=== PATIENT | female | born 1955 | race Caucasian/White ===

== ENCOUNTER → 2017-03-27 | Outpatient (CLI) | payer BC ==
[2017-03-27 09:23] LABS: Basophils % (A) 1 %; Eosinophils # (A) 0.2 k/uL (0-0.7); Eosinophils % (A) 5 %; HCT 44.6 % (34.0-46.0); HGB 14.4 gm/dL (11.4-16.0); Lymphocytes # (A) 1.1 k/uL (1.0-4.8); Lymphocytes % (A) 23 %; MCH 30.3 pg (25.0-35.0); MCHC 32.2 g/dL (31.0-37.0); Mean Platelet Volume 6.7; Monocytes # (A) 0.2 k/uL (0-1.0); Monocytes % (A) 5 %; Neutrophils # (A) 2.9 k/uL (1.3-7.7); Neutrophils % (A) 64 %; Platelet Count 237 k/uL (150-450); RBC 4.75 m/uL (3.80-5.40); RDW 15.2 % (11.5-15.5); WBC 4.6 k/uL (3.8-10.6)
[2017-03-27 10:05] LABS: ALT 34 U/L (9-52); AST 28 U/L (14-36); Albumin 3.9 g/dL (3.5-5.0); Alkaline Phosphatase 70 U/L (38-126); Anion Gap 6 mmol/L; Blood Urea Nitrogen 11 mg/dL (7-17); Calcium 9.6 mg/dL (8.4-10.2); Carbon Dioxide 29 mmol/L (22-30); Chloride 109 mmol/L (98-107); Cholesterol 229 mg/dL (<200); Glucose 87 mg/dL (74-99); HDL Cholesterol 58 mg/dL (40-60); LDL Cholesterol,Calculated 152 mg/dL (0-99); Potassium 4.5 mmol/L (3.5-5.1); Sodium 144 mmol/L (137-145); Total Bilirubin 0.3 mg/dL (0.2-1.3); Total Protein 6.3 g/dL (6.3-8.2); Triglycerides 95 mg/dL (<150)
[2017-03-27 10:19] LABS: T4, Free (Free Thyroxine) 0.76 ng/dL (0.78-2.19)
[2017-03-27 20:25] LABS: Hemoglobin A1C 4.9 % (4.0-6.0)
== END | disposition home or self-care (01) ==
LOC: LABWHC1 09:05
PROVIDERS: ATTEND Internal Medicine Critical Care Medicine
DX: Z00.00 Encounter for general adult medical examination without abnormal findings (principal); J45.909 Unspecified asthma, uncomplicated; Z79.899 Other long term (current) drug therapy
CPT/HCPCS: 36415; 80053; 80061; 82306; 83036; 84439; 84443; 85025

== ENCOUNTER → 2020-06-26 | Outpatient (CLI) | payer BC, MEDICARE ==
[2020-06-26 10:26] LABS: ALT 13 U/L (4-34); AST 25 U/L (14-36); African American GFR (CKD) >90 (>60 ml/min/1.73 sqM); Albumin 4.2 g/dL (3.5-5.0); Alkaline Phosphatase 52 U/L (38-126); Anion Gap 6 mmol/L; Blood Urea Nitrogen 9 mg/dL (7-17); Calcium 9.7 mg/dL (8.4-10.2); Carbon Dioxide 28 mmol/L (22-30); Chloride 108 mmol/L (98-107); Glucose 71 mg/dL (74-99); Non-African American GFR(CKD) >90 (>60 ml/min/1.73 sqM); Potassium 4.2 mmol/L (3.5-5.1); Sodium 142 mmol/L (137-145); Total Bilirubin 0.5 mg/dL (0.2-1.3); Total Protein 6.2 g/dL (6.3-8.2)
[2020-06-26 10:43] LABS: T4, Free (Free Thyroxine) 0.85 ng/dL (0.78-2.19)
[2020-06-26 10:48] LABS: Basophils % (A) 1 %; Eosinophils % (A) 1 %; HCT 41.3 % (34.0-46.0); HGB 13.9 gm/dL (11.4-16.0); Lymphocytes # (A) 0.6 k/uL (1.0-4.8); Lymphocytes % (A) 12 %; MCHC 33.6 g/dL (31.0-37.0); MCV 95.3 fL (80.0-100.0); Mean Platelet Volume 7.7; Monocytes # (A) 0.2 k/uL (0-1.0); Monocytes % (A) 4 %; Neutrophils # (A) 3.9 k/uL (1.3-7.7); Neutrophils % (A) 82 %; Platelet Count 208 k/uL (150-450); RBC 4.33 m/uL (3.80-5.40); RDW 14.1 % (11.5-15.5); WBC 4.8 k/uL (3.8-10.6)
--- NOTE | 2020-06-26 12:22 | MM ---
Reason for exam: clinical finding. History: Patient is postmenopausal and is nulliparous. Family history of breast cancer in sister at age 50. Indicated problem(s): lump or thickening in the right breast. Physical Findings: Nurse Summary: 2 x 3cm nodule in the right breast at 7 o'clock (nurse ts). MG 3D Diag Mammo W/Cad ALONSO Bilateral CC and MLO view(s) were taken. The breast tissue is heterogeneously dense. This may lower the sensitivity of mammography. Multiple bilateral punctate calcifications. 2.1cm mass at the site of palpable abnormality right breast. Improved distortion upper outer left breast 6.6cm from nipple. These results were verbally communicated with the patient and result sheet given to the patient on 06/26/20. ASSESSMENT: Incomplete: need additional imaging evaluation, BI-RAD 0 RECOMMENDATION: Ultrasound of both breasts. Manage patient on a clinical basis.
--- NOTE | 2020-06-26 12:25 | USB ---
Reason for exam: additional evaluation requested from abnormal screening. History: Patient is postmenopausal and is nulliparous. Family history of breast cancer in sister at age 50. US Breast Limited BILAT Right limited breast ultrasound including focal area of concern, retroareolar and axilla demonstrates a 2.1 x 2.5 x 1.9cm solid, vascular lesion with calcifications at 9 o'clock, a 1.5 x 1.5 x 0.8cm solid lesion with calcifications at 11 o'clock and a 3.1 x 3.0 x 2.1cm irregular lymph node at the axilla. Biopsy recommended. Left limited breast ultrasound including focal area of concern, retroareolar and axilla demonstrates a 1.5 x 1.4 x 0.5cm solid lesion with calcifications at 1 o'clock. Biopsy recommended. These results were verbally communicated with the patient and result sheet given to the patient on 06/26/20. ASSESSMENT: Highly suggestive of malignancy, BI-RAD 5 RECOMMENDATION: Ultrasound core biopsy of both breasts. Called Dr. Reid's office with mammographic findings and has scheduled an appointment for the patient for 06/28/20 at 8:[address] Sanchez. Biopsy scheduled for 07/05/20 at 10:30. PRELIMINARY REPORT CALLED AND FAXED TO DR. SANCHEZ ON 06/26/20.
[2020-06-26 13:40] LABS: Cholesterol 209 mg/dL (<200); HDL Cholesterol 60 mg/dL (40-60); LDL Cholesterol,Calculated 137 mg/dL (0-99); Triglycerides 58 mg/dL (<150)
[2020-06-26 19:00] LABS: Hemoglobin A1C 4.7 % (4.0-6.0)
[2020-06-27 10:23] LABS: Folate, Serum >24.0 ng/mL
== END | disposition home or self-care (01) ==
LOC: RADMAMWWP 07:01
PROVIDERS: ATTEND Internal Medicine Critical Care Medicine
DX: R92.1 Mammographic calcification found on diagnostic imaging of breast (principal); Z78.0 Asymptomatic menopausal state; Z80.3 Family history of malignant neoplasm of breast
CPT/HCPCS: 36415; 77062; 77066; 80053; 80061; 82306; 82607; 82746; 83036; 84439; 84443; 85025

== ENCOUNTER → 2020-06-28 | Outpatient (CLI) | payer BC, MEDICARE ==
[2020-06-28 08:26] VITALS: BP 119/75; PULSE 57; RESP 14; TEMP 98.6
--- NOTE | 2020-06-28 09:02 | P.GSHP ---
History of Present Illness H&P Date: 06/28/20 Chief Complaint: Mass right breast/abnormal mammogram and ultrasound bilateral Silva is a 65-year-old white female seen in consultation for Dr. Reid regarding a mass in her right breast and bilateral mammographic/ultrasound abnormalities. The patient states approximately March she noted a mass in her right breast. She states that the skin was discolored as though she had a bruise although she did not recall any trauma. Since that time the area of fullness has decreased in size. She does not complain of any pain in her breast. She had bilateral mammogram performed on 5520. This revealed multiple bilateral punctate calcifications, a 2.1 cm mass at the site of palpable palpable abnormality in the right breast, and distortion upper outer quadrant left breast 6 cm from the nipple. Recommendation was for bilateral breast ultrasound. Bilateral breast ultrasound was performed on the same date and this revealed: Right breast: 2.1 x 2.5 cm solid lesion with calcifications at 9:00, 1.5 x 1.5 cm solid lesion with calcifications at 11:00, and 3.1 x 2.1 cm irregular lymph node at the axilla, biopsy recommended. Left breast: 1.5 cm solid lesion with calcifications at 1:00 biopsy recommended She had not had mammograms performed for many years prior to this. She has not noted any nipple discharge or skin changes. She has not had any recent infection of the breast. She's never had any surgery of the breast. She states she has had a recent 75 pound weight loss which was intentional. Caffeine: 2 cups green tea per day Nicotine: Negative, never smoker Chocolate: Occasional Family history: sister: of breast cancer at 51 maternal cousin: brain cancer maternal cousin: leukemia Hormonal history: Menarche: 12 G0 menopause: 39, natural BCP: none hormones: none Surgical history: left ankle and leg trauma Medical History: asthma Eosinophilic esophagitis, diet controlled Social history: Nicotine: Negative Alcohol: Negative Drugs: Negative - Constitutional Constitutional: Denies chills, Denies fever - EENT Comment: beginnings of cataracts, wears glasses Eyes: denies blurred vision, denies pain Ears: deny: decreased hearing, tinnitus Ears, nose, mouth and throat: Denies headache, Denies sore throat - Breasts Breasts: bilateral: as per HPI - Cardiovascular Cardiovascular: Denies chest pain, Denies shortness of breath - Respiratory Comment: asthma/since a child, very premature weighed 3 pounds - Gastrointestinal Gastrointestinal: Denies abdominal pain, Denies diarrhea, Denies nausea, Denies vomiting - Genitourinary (Female) Genitourinary: Denies dysuria, Denies hematuria - Menstruation Menstruation: Reports postmenopausal - Musculoskeletal Musculoskeletal: Denies myalgias - Integumentary Integumentary: Denies pruritus, Denies rash - Neurological Neurological: Denies numbness, Denies weakness - Psychiatric Psychiatric: Denies anxiety, Denies depression - Endocrine Endocrine: Denies fatigue, Denies weight change - Hematologic/Lymphatic Comment: none - Allergic/Immunologic Allergic/Immunologic: Reports seasonal allergies Past Medical History Past Medical History: Asthma Additional Past Medical History / Comment(s): eosinophilic esophagitis; right pneumothorax 1993; History of Any Multi-Drug Resistant Organisms: None Reported Additional Past Surgical History / Comment(s): left ankle; Past Anesthesia/Blood Transfusion Reactions: No Reported Reaction Past Psychological History: No Psychological Hx Reported Smoking Status: Never smoker Past Alcohol Use History: None Reported Past Drug Use History: None Reported Medications and Allergies Home Medications Medication Instructions Recorded Confirmed Type Albuterol Sulfate [Albuterol 2 puff PO Q6H 06/28/20 06/28/20 History Sulfate Hfa] Budesonide/Formoterol Fumarate 2 puff PO BID 06/28/20 06/28/20 History [Budesonide-Formoterol 160-4.5] Cholecalciferol [Vitamin D3 (10 10 mcg PO QAM 06/28/20 06/28/20 History Mcg = 400 Iu)] Montelukast [Singulair] 10 mg PO QAM 06/28/20 06/28/20 History Multivitamin with Iron 1 each PO QAM 06/28/20 06/28/20 History [Multivitamins with Iron] [place]-3 Fatty Acids [[place]-3] 1,000 mg PO QAM 06/28/20 06/28/20 History Allergies Allergy/AdvReac Type Severity Reaction Status Date / Time No Known Allergies Allergy Verified 06/28/20 08:09 Surgical - Exam Vital Signs Temp Pulse Resp BP Pulse Ox 98.6 F 57 L 14 119/75 99 06/28/20 08:22 06/28/20 08:22 06/28/20 08:22 06/28/20 08:22 06/28/20 08:22 BM 19 - General no distress - Eyes normal ocular movement - ENT normal pinna, normal nares - Neck no masses, trachea midline - Respiratory normal expansion, normal respiratory effort, clear to auscultation - Cardiovascular Rhythm: regular Heart Sounds: normal: S1, S2 - Abdomen Abdomen: soft, non tender, no guarding, no rigid, no rebound - Integumentary normal turgor - Neurologic no disoriented, no combative - Musculoskeletal normal gait - Psychiatric oriented to time, oriented to person, oriented to place, speech is normal, memory intact Breast Exam: BRA: 36DD inspection: bilateral grade 3 ptosis palpation: Right breast: Multi-positional exam fibrocystic changes, ptotic, mass approximately 6 to 7 o'clock position approximately 2 cm in size corresponding with radiographic abnormality which most likely moved on the radiograph and appears to be in the 9 to 11 o'clock position no other discrete dominant masses were noted in the right breast Right axilla: No adenopathy of concern on today's evaluation/patient did have COVID vaccination and she thinks it was in the right arm done in April Left breast: Multi-positional exam fibrocystic changes, ptotic, no dominant masses or nodules of concern Left axilla: No adenopathy of concern Mammogram and ultrasound were reviewed with Dr. Guzman the patient is noted to have the lesions for which biopsy is recommended in the right breast 9:00 11:00 and right axilla the lesion at 6 to 7:00 most likely corresponds with either the 9 or 11:00 spot seen Left breast 1:00 lesion for which biopsy is recommended Results Mammogram and ultrasound reviewed in detail with Dr. Guzman from radiology recommendations as stated Right breast: Biopsy at 11:00 Biopsy at 9:00 Biopsy right axilla Left breast: Biopsy at 1:00 Assessment and Plan Assessment: Impression: 1. Mass right breast 2. Radiographic abnormality right and left breast 3. Fibrocystic breast changes 4. Asthma Plan: 1. Ultrasound-guided core biopsy right breast 3 sites 9:00, 11:00, and axilla Ultrasound-guided core biopsy left breast 1:00 I suspect that the lesion between 9 and 11:00 in the right breast may correspond to the palpable lesion in the 6 to 7:00 area. I believe that this is freely mobile most likely moves when radiographic evaluation is performed. Risks and benefits of the procedure were discussed with the patient. She understands and wishes to proceed. Risks include but are not limited to bleeding, infection, reaction to the anesthetic. The lesion in the right breast is distinct enough that even if the core biopsy were benign we will most likely resect this area. We would consider a benign biopsy discordant. She understands and will be seen following the biopsies. CC: Dr. Reid
== END ==
LOC: WWCWWP 07:58
PROVIDERS: ATTEND Surgery
DX: N63.10 Unspecified lump in the right breast, unspecified quadrant (principal); N60.11 Diffuse cystic mastopathy of right breast; N60.12 Diffuse cystic mastopathy of left breast; R92.8 Other abnormal and inconclusive findings on diagnostic imaging of breast; J45.909 Unspecified asthma, uncomplicated

== ENCOUNTER → 2020-07-05 | Day surgery (SDC) | payer BC, MEDICARE ==
[2020-07-05 10:00] VITALS: RESP 16
--- NOTE | 2020-07-05 14:10 | USB ---
EXAMINATION TYPE: US biopsy breast add'l VAD RT, US biopsy breast add'l VAD RT, US biopsy breast VAD RT DATE OF EXAM: 07/05/2020 CLINICAL HISTORY: R92.8, ABN MAMM. TECHNIQUE: Ultrasound guided core biopsy of right breast at 3 sites including the 9:00, axilla and right 11:00 positions.. COMPARISON: NONE FINDINGS: The procedure of ultrasound guided core biopsy was explained to the patient. Benefits, alternatives, and risks were discussed. An informed consent was then obtained. The patient was placed in supine positioning for imaging and for the procedure. The overlying skin was prepped and draped in usual sterile fashion. Lidocaine buffered with bicarbonate was used as anesthetic into the skin and subcutaneous tissue up to areas of concern in the right breast. Under ultrasound guidance, a 12-gauge vacuum assisted biopsy gun device was used to obtain 3 core samples from each site at the right 9:00, axilla and right 11:00 positions. Following this, a biopsy clips were deployed within each lesion. The patient tolerated the procedure well without any immediate complication. The patient was kept in the radiology department for short stay after the procedure and then discharged home in stable condition. IMPRESSION: Successful, uncomplicated ultrasound guided core biopsy of 3 areas as noted above within the right breast. Pathology results are to follow. Pathology Results: Malignant A. RIGHT BREAST, SITE A 9:00, ULTRASOUND GUIDED CORE BIOPSY: Invasive mucinous carcinoma with associated calcifications. See Surgical Pathology Cancer Case Summary. B. RIGHT AXILLA, SITE B, ULTRASOUND GUIDED CORE BIOPSY: Invasive mucinous carcinoma with associated calcifications. See Surgical Pathology Cancer Case Summary. C. RIGHT BREAST, SITE C 11:00, ULTRASOUND GUIDED CORE BIOPSY: Fibrocystic changes include cysts with fibrosis, chronic inflammation, fibrosis/scar and duct ectasia. D. 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 Recommendation Right 9 o'clock and right axilla, surgical consult. Right 11 o'clock and left 1 o'clock, 6 month follow up ultrasound. RUSTYD
--- NOTE | 2020-07-05 14:19 | USB ---
PEXAMINATION TYPE: US biopsy breast VAD LT DATE OF EXAM: 07/05/2020 CLINICAL HISTORY: R92.8 ABN MAMMO. TECHNIQUE: Ultrasound guided core biopsy of left 1:00 breast. COMPARISON: NONE FINDINGS: The procedure of ultrasound guided core biopsy was explained to the patient. Benefits, alternatives, and risks were discussed. An informed consent was then obtained. The patient was placed in supine positioning for imaging and for the procedure. The overlying skin was prepped and draped in usual sterile fashion. Lidocaine buffered with bicarbonate was used as anesthetic into the skin and subcutaneous tissue up to area of concern in the left 1:00 breast. A shirley was made with surgical scalpel. Under ultrasound guidance, a 12-gauge vacuum assisted biopsy gun device was used to obtain 4 core samples. Following this, a biopsy clip was left in lesion. The patient tolerated the procedure well without any immediate complication. The patient was kept in the radiology department for short stay after the procedure and then discharged home in stable condition. IMPRESSION: Successful, uncomplicated ultrasound guided core biopsy of area of concern in the left 1:00 breast, full pathology results to follow. Pathology Results: Benign Pathology Results: Malignant A. RIGHT BREAST, SITE A 9:00, ULTRASOUND GUIDED CORE BIOPSY: Invasive mucinous carcinoma with associated calcifications. See Surgical Pathology Cancer Case Summary. B. RIGHT AXILLA, SITE B, ULTRASOUND GUIDED CORE BIOPSY: Invasive mucinous carcinoma with associated calcifications. See Surgical Pathology Cancer Case Summary. C. RIGHT BREAST, SITE C 11:00, ULTRASOUND GUIDED CORE BIOPSY: Fibrocystic changes include cysts with fibrosis, chronic inflammation, fibrosis/scar and duct ectasia. D. 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 Recommendation Right 9 o'clock and right axilla, surgical consult. Right 11 o'clock and left 1 o'clock, 6 month follow up ultrasound. RUSTYD
--- NOTE | 2020-07-05 14:49 | MM ---
Reason for exam: additional evaluation requested from abnormal screening. Last mammogram was performed less than 1 month ago. History: Patient is postmenopausal and is nulliparous. Family history of breast cancer in sister at age 50. MG Diagnostic Leslye BI Wo CAD Bilateral CC and LM view(s) were taken. Prior study comparison: June 26, 2020, bilateral MG 3d diag mammo w/cad ALONSO. ASSESSMENT: Post procedure mammogram for marker placement RECOMMENDATION: Right 9 o'clock and right axilla, surgical consult. Right 11 o'clock and left 1 o'clock, 6 month follow up ultrasound. YG
[2020-07-05 15:22] VITALS: BP 120/80; PULSE 55; TEMP 98.3
== END ==
LOC: RADUSWWP 09:26
PROVIDERS: ATTEND Surgery
DX: C50.911 Malignant neoplasm of unspecified site of right female breast (principal); C76.1 Malignant neoplasm of thorax; R92.1 Mammographic calcification found on diagnostic imaging of breast; N60.41 Mammary duct ectasia of right breast; N60.42 Mammary duct ectasia of left breast; N60.11 Diffuse cystic mastopathy of right breast; Z88.2 Allergy status to sulfonamides; Z91.040 Latex allergy status
CPT/HCPCS: 88305; 88342; 88341; 77066; 19083; 19084 ×2; A4648; J2001

== ENCOUNTER → 2020-07-12 | Outpatient (CLI) | payer BC, MEDICARE ==
[2020-07-12 12:12] VITALS: BP 122/81; PULSE 55; RESP 14; TEMP 98.3
--- NOTE | 2020-07-12 12:54 | P.PN ---
Subjective Progress Note Date: 07/12/20 Principal diagnosis: results of ultrasound core biopsy of the breast Silva is a 65-year-old white female seen in consultation for Dr. Reid regarding a mass in her right breast and bilateral mammographic/ultrasound abnormalities. The patient states approximately March she noted a mass in her right breast. She states that the skin was discolored as though she had a bruise although she did not recall any trauma. Since that time the area of fullness had decreased in size. She did not complain of any pain in her breast. She had bilateral mammogram performed on 5520. This revealed multiple bilateral punctate calcifications, a 2.1 cm mass at the site of palpable pal pable abnormality in the right breast, and distortion upper outer quadrant left breast 6 cm from the nipple. Recommendation was for bilateral breast ultrasound. Bilateral breast ultrasound was performed on the same date and this revealed: Right breast: 2.1 x 2.5 cm solid lesion with calcifications at 9:00, 1.5 x 1.5 cm solid lesion with calcifications at 11:00, and 3.1 x 2.1 cm irregular lymph n ode at the axilla, biopsy recommended. Left breast: 1.5 cm solid lesion with calcifications at 1:00 biopsy recommended She had not had mammograms performed for many years prior to this. She has not noted any nipple discharge or skin changes. She has not had any recent infection of the breast. She's never had any surgery of the breast. She states she has had a recent 75 pound weight loss which was intentional. She underwent an ultrasound-guided core biopsy on . 3 areas in the right breast were sampled and one area in the left Right breast 9:00 invasive mucinous carcinoma Right axilla: Invasive mucinous carcinoma most likely replaced lymph node Right breast 11:00 fibrocystic changes Left breast 1:00 focal metaplastic calcification with associated calcifications and background fibrocystic changes Silva tolerated the procedure with no difficulty. Caffeine: 2 cups green tea per day Nicotine: Negative, never smoker Chocolate: Occasional Family history: sister: of breast cancer at 51 maternal cousin: brain cancer maternal cousin: leukemia Hormonal history: Menarche: 12 G0 menopause: 39, natural BCP: none hormones: none Surgical history: left ankle and leg trauma Medical History: asthma Eosinophilic esophagitis, diet controlled Social history: Nicotine: Negative Alcohol: Negative Drugs: Negative - Constitutional Constitutional: Denies chills, Denies fever - EENT Comment: beginnings of cataracts, wears glasses Eyes: denies blurred vision, denies pain Ears: deny: decreased hearing, tinnitus Ears, nose, mouth and throat: Denies headache, Denies sore throat - Breasts Breasts: bilateral: as per HPI - Cardiovascular Cardiovascular: Denies chest pain, Denies shortness of breath - Respiratory Comment: asthma/since a child, very premature weighed 3 pounds - Gastrointestinal Gastrointestinal: Denies abdominal pain, Denies diarrhea, Denies nausea, Denies vomiting - Genitourinary (Female) Genitourinary: Denies dysuria, Denies hematuria - Menstruation Menstruation: Reports postmenopausal - Musculoskeletal Musculoskeletal: Denies myalgias - Integumentary Integumentary: Denies pruritus, Denies rash - Neurological Neurological: Denies numbness, Denies weakness - Psychiatric Psychiatric: Denies anxiety, Denies depression - Endocrine Endocrine: Denies fatigue, Denies weight change - Hematologic/Lymphatic Comment: none - Allergic/Immunologic Allergic/Immunologic: Reports seasonal allergies Objective - Vital Signs Vital signs: Vital Signs Temp 98.3 F 07/12/20 12:09 Pulse 55 L 07/12/20 12:09 Resp 14 07/12/20 12:09 BP 122/81 07/12/20 12:09 Pulse Ox 99 07/12/20 12:09 Intake & Output 07/11/20 07/12/20 07/12/20 18:59 06:59 18:59 Weight 56.699 kg - Constitutional General appearance: Present: average body habitus - EENT Eyes: Present: EOMI ENT: Present: hearing grossly normal - Neck Neck: Present: normal ROM - Respiratory Respiratory: bilateral: CTA - Cardiovascular Heart sounds: normal: S1, S2 - Integumentary Integumentary Comment(s): Biopsy site right breast clean and dry no evidence of infection or hematoma Biopsy site left breast clean and dry Evidence of infection or hematoma Assessment and Plan Assessment: Impression: 1. Invasive mucinous carcinoma right breast 2. Left breast biopsy benign Plan: 1. Treatment with medical oncology 2. Presentation of case at tumor board 3. Appointment with genetic testing 4. If possible patient with peripheral lumpectomy, she will follow-up after seeing medical oncology and having her case presented at tumor board 5. follow up in three weeks Encounter 50 minutes, time spent on examination, reviewing records (discussing pathology with Dr. Ward), and counselling. Cc: Dr. Reid
== END ==
LOC: WWCWWP 11:53
PROVIDERS: ATTEND Surgery
DX: C50.911 Malignant neoplasm of unspecified site of right female breast (principal); J45.909 Unspecified asthma, uncomplicated; Z79.51 Long term (current) use of inhaled steroids; Z91.040 Latex allergy status; Z91.02 Food additives allergy status

== ENCOUNTER → 2020-08-02 | Outpatient (CLI) | payer BC, MEDICARE ==
--- NOTE | 2020-08-05 22:02 | PE ---
EXAMINATION TYPE: PET CT fusion skull to thigh DATE OF EXAM: 08/02/2020 COMPARISON: NONE HISTORY: Right-sided breast cancer invasive mucinous carcinoma on biopsy July 05, 2020 9:00 lesion a nd right axillary lesion. Benign biopsies left breast 1:00 and right breast 11:00. TECHNIQUE: Following the intravenous administration of 12.45 mCi of F-18 FDG, whole body images are performed from the skull base to the midthigh. Images are reviewed on the computer in the coronal, a xial, and sagittal planes. Reconstructed rotating images are created on independent workstation and reviewed on the computer. A localization and attenuation correction CT is performed in conjunction with the PET scan. Blood glucose level = 65. SCAN: Subsequent Scan FINDINGS: SKULL BASE AND NECK: No areas of abnormal hypermetabolic uptake. CHEST, MEDIASTINUM, AND HILAR REGION: Demonstration of enlarged mildly hypermetabolic right axillary 2.3 x 1.8 cm lymph node axial image 67 corresponding to ultrasound. The max SUV less than 2.5. Just lateral to the nipple there is 2.5 x 1.8 cm slightly hypermetabolic right breast mass correspond ing to biopsy-proven neoplasm. The max SUV less than 2.5. Scattered heterogeneously dense tissue and round dystrophic calcifications throughout both breasts, t he latter more prominent in the right breast are noted. ABDOMEN AND PELVIS: No areas of abnormal hypermetabolic uptake. OSSEOUS STRUCTURES: No areas of abnormal hypermetabolic uptake. OTHER CT: The heart size upper limits of normal. Mild to moderate three-vessel coronary artery calcif ication. Tiny pericardial effusion. Small nonobstructing bilateral renal calculi, largest right kidney measures 6 mm long axis axial imag e 167. Patient has very little intra-abdominal fat. S-shaped scoliosis. IMPRESSION: Known biopsy-proven neoplasm right breast and right axillary adenopathy not well identifi ed on PET/CT due to only mild hypermetabolic uptake. No areas of suspicious hypermetabolic uptake to suggest metastatic disease though there are limitations in mucinous neoplasms on PET/CT noted.
== END | disposition home or self-care (01) ==
LOC: RADPETMAIN 13:22
PROVIDERS: ATTEND Surgery
DX: C50.911 Malignant neoplasm of unspecified site of right female breast (principal); R59.0 Localized enlarged lymph nodes
CPT/HCPCS: 78815; A9552

== ENCOUNTER → 2020-08-02 | Outpatient (CLI) | payer BC, MEDICARE ==
--- NOTE | 2020-08-02 20:18 | BD ---
EXAMINATION TYPE: Axial Bone Density DATE OF EXAM: 08/02/2020 COMPARISON: 12.12.2010 CLINICAL HISTORY: 65 YR OLD FEMALE.....ICD-10 CODE: Z79.890 POST MENOPAUSAL, C50.511 BR CANCER Height: 66.2 Weight: 124 FRAX RISK QUESTIONS: Family History (Parent hip fracture): YES Glucocorticoids (More than 3mos): YES (Ex: prednisone, prednisolone, methylprednisolone, dexamethasone, and hydrocortisone). History of Fracture in Adulthood: YES Secondary Osteoporosis: YES 3. Menopause before 45: YES RISK FACTORS HISTORY OF: HX OF LT LOWER LEG FX WITH SURGICAL REPAIR, AN ADULT, AND RIBS History of Wrist Fracture: YES, BOTH WRISTS ALL ADULTS Family History of Osteoporosis: YES, MOTHER WITH MANY BREAKS, INCLUDING HIPS Diet low in dairy products/other sources of calcium: YES, PT IS VEGAN, NO DAIRY Postmenopausal woman: YES, AT ABOUT AGE 39 YRS OLD Lost more than 2 inches in height since high school: YES Hyperparathyroidism: NO Adrenal Insufficiency: NO MEDICATIONS: Prednisone or other steroids: YES, FOR ASTHMA Additional Medications: FEMARA, BUT NO RADIATION OR CHEMO YET, REFLUX IN THE PAST, VIT D AND CALCIUM SUPPLEMENTS, Additional History: HX OF RT BREAST CANCER, ASTHMA, EXAM MEASUREMENTS: Bone mineral densitometry was performed using the [employer] System. Bone mineral density as measured about the Lumbar spine is: ----- L1-L4(G/cm2): 0.603 T Score Values are as follows ----- L1: -5.0 ----- L2: -5.2 ----- L3: -4.4 ----- L4: -4.7 ----- L1-L4: -4.8 Bone mineral density has: Decreased -6.8% since study of: 12.12.2010 Bone mineral density about the R hip (g/cm2): 0.682 Bone mineral density about the L hip (g/cm2): 0.676 T Score values are as follows: -----R Neck: -2.4 -----L Neck: -2.5 -----R Total: -2.6 -----L Total: -2.6 Bone mineral density has: Decreased -17.0% since study of: 12.12.2010 FRAX%s: THERE IS A 46.8% CHANCE FOR A MAJOR OSTEOPOROTIC FX AND A 9.0% FOR HIP.....PROBABILITY FOR FX IN 10 YRS TIME IMPRESSION: Osteoporosis (T Score less than -2.5). There is increased fracture risk and therapy is usually indicated based on age. Re-Screen 1-2 years. NOTE: T-SCORE=SD OF THE YOUNG ADULT MEAN.
== END | disposition home or self-care (01) ==
LOC: RADBDWWP 09:48
PROVIDERS: ATTEND Internal Medicine Hematology & Oncology
DX: Z13.820 Encounter for screening for osteoporosis (principal); M81.0 Age-related osteoporosis without current pathological fracture; Z78.0 Asymptomatic menopausal state; Z79.52 Long term (current) use of systemic steroids
CPT/HCPCS: 77080

== ENCOUNTER → 2020-08-08 | Outpatient (CLI) | payer BC, MEDICARE ==
[2020-08-08 14:33] VITALS: BP 136/81; PULSE 61; RESP 14; TEMP 98.9
--- NOTE | 2020-08-08 14:39 | P.PN ---
Subjective Progress Note Date: 08/08/20 Principal diagnosis: stge IIB right breast cancer Silva is a 65-year-old white female seen in consultation for Dr. Reid regarding a mass in her right breast and bilateral mammographic/ultrasound abnormalities. The patient states approximately March she noted a mass in her right breast. She states that the skin was discolored as though she had a bruise although she did not recall any trauma. Since that time the area of fullness had decreased in size. She did not complain of any pain in her breast. She had bilateral mammogram performed on 5520. This revealed multiple bilateral punctate calcifications, a 2.1 cm mass at the site of palpable palpable abnormality in the right breast, and distortion upper outer quadrant left breast 6 cm from the nipple. Recommendation was for bilateral breast ultrasound. Bilateral breast ultrasound was performed on the same date and this revealed: Right breast: 2.1 x 2.5 cm solid lesion with calcifications at 9:00, 1.5 x 1.5 cm solid lesion with calcifications at 11:00, and 3.1 x 2.1 cm irregular lymph node at the axilla, biopsy recommended. Left breast: 1.5 cm solid lesion with calcifications at 1:00 biopsy recommended She had not had mammograms performed for many years prior to this. She had not noted any nipple discharge or skin changes. She had not had any recent infection of the breast. She's never had any surgery of the breast. She states she has had a recent 75 pound weight loss which was intentional. [place] [address]. 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 [place] [address]. This revealed known biopsy-proven right breast cancer and right axillary adenopathy not well identified and packed due to mild hypermetabolic uptake. No areas of suspicious hypermetabolic uptake to suggest metastatic disease. It was noted that there are limitations in mucinous neoplasia is on PET/CT. [place] from [place]. [place] [id number] was reviewed. She was advised neoadjuvant therapy to which she agreed. Oncotype DX recommended and if this were to be low neoadjuvant hormonal therapy recommended. Presently awaiting results of genetic testing as well as the Oncotype DX test. The patient did have a bone density performed and [id number]. This was consistent with osteoporosis. She will discuss this with Dr. Long at her next appointment. She is currently on an aromatase inhibitor, Femora. She is handling this without any difficulty. She does continue to complain of some discomfort under her right arm following the core biopsy. The patient states it is a throbbing pain that travels down her arm. It is constant. She states her arm is weaker. Caffeine: 2 cups green tea per day Nicotine: Negative, never smoker Chocolate: Occasional Family history: sister: of breast cancer at 51 maternal cousin: brain cancer maternal cousin: leukemia Hormonal history: Menarche: 12 G0 menopause: 39, natural BCP: none hormones: none Surgical history: left ankle and leg trauma Medical History: asthma Eosinophilic esophagitis, diet controlled Social history: Nicotine: Negative Alcohol: Negative Drugs: Negative - Constitutional Constitutional: Denies chills, Denies fever - EENT Comment: beginnings of cataracts, wears glasses Eyes: denies blurred vision, denies pain Ears: deny: decreased hearing, tinnitus Ears, nose, mouth and throat: Denies headache, Denies sore throat - Breasts Breasts: bilateral: as per HPI - Cardiovascular Cardiovascular: Denies chest pain, Denies shortness of breath - Respiratory Comment: asthma/since a child, very premature weighed 3 pounds - Gastrointestinal Gastrointestinal: Denies abdominal pain, Denies diarrhea, Denies nausea, Denies vomiting - Genitourinary (Female) Genitourinary: Denies dysuria, Denies hematuria - Menstruation Menstruation: Reports postmenopausal - Musculoskeletal Musculoskeletal: Denies myalgias - Integumentary Integumentary: Denies pruritus, Denies rash - Neurological Neurological: Denies numbness, Denies weakness - Psychiatric Psychiatric: Denies anxiety, Denies depression - Endocrine Endocrine: Denies fatigue, Denies weight change - Hematologic/Lymphatic Comment: none - Allergic/Immunologic Allergic/Immunologic: Reports seasonal allergies Objective - Constitutional General appearance: Present: average body habitus - EENT Eyes: Present: EOMI ENT: Present: hearing grossly normal - Neck Neck: Present: normal ROM - Integumentary Integumentary Comment(s): Examination of the right axilla reveals approximately a 2 x 3 cm mobile lymph node, pressure on this causes discomfort in her arm Integumentary: Present: normal turgor Assessment and Plan Assessment: Impression: 1. stage IIB right breast cancer 2. asthma 3. Eosinophilic esophagitis, diet controlled Plan: 1. Continue Femara 2. Follow up with Dr. Long 3. Awaiting results of Oncotype DX genetic testing 4. Follow-up. 2 months CC: Dr. Reid
== END ==
LOC: WWCWWP 13:48
PROVIDERS: ATTEND Surgery
DX: C50.411 Malignant neoplasm of upper-outer quadrant of right female breast (principal); J45.909 Unspecified asthma, uncomplicated; Z79.811 Long term (current) use of aromatase inhibitors; N64.89 Other specified disorders of breast; Z91.040 Latex allergy status; Z88.8 Allergy status to other drugs, medicaments and biological substances

== ENCOUNTER → 2020-10-25 | Outpatient (CLI) | payer BC, MEDICARE ==
[2020-10-25 09:02] VITALS: BP 131/75; PULSE 58; RESP 12; TEMP 98.2
--- NOTE | 2020-10-25 09:21 | P.PN ---
Subjective Progress Note Date: 10/25/20 Principal diagnosis: stage IIB right breast cancer Silva is a 65-year-old white female seen in consultation for Dr. Reid regarding a mass in her right breast and bilateral mammographic/ultrasound abnormalities. The patient states approximately March she noted a mass in her right breast. She states that the skin was discolored as though she had a bruise although she did not recall any trauma. Since that time the area of fullness has decreased in size. She does not complain of any pain in her breast. She had bilateral mammogram performed on 5520. This revealed multiple bilateral punctate calcifications, a 2.1 cm mass at the site of palpable palpable abnormality in the right breast, and distortion upper outer quadrant left breast 6 cm from the nipple. Recommendation was for bilateral breast ultrasound. Bilateral breast ultrasound was performed on the same date and this revealed: Right breast: 2.1 x 2.5 cm solid lesion with calcifications at 9:00, 1.5 x 1.5 cm solid lesion with calcifications at 11:00, and 3.1 x 2.1 cm irregular lymph node at the axilla, biopsy recommended. Left breast: 1.5 cm solid lesion with calcifications at 1:00 biopsy recommended She had not had mammograms performed for many years prior to this. She has not noted any nipple discharge or skin changes. She has not had any recent infection of the breast. She's never had any surgery of the breast. She states she has had a recent 75 pound weight loss which was intentional. 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 She believes the tumor has shrunken. Caffeine: 2 cups green tea per day Nicotine: Negative, never smoker Chocolate: Occasional Family history: sister: of breast cancer at 51 maternal cousin: brain cancer maternal cousin: leukemia Hormonal history: Menarche: 12 G0 menopause: 39, natural BCP: none hormones: none Surgical history: left ankle and leg trauma Medical History: asthma Eosinophilic esophagitis, diet controlled Social history: Nicotine: Negative Alcohol: Negative Drugs: Negative - Constitutional Constitutional: Denies chills, Denies fever - EENT Comment: beginnings of cataracts, wears glasses Eyes: denies blurred vision, denies pain Ears: deny: decreased hearing, tinnitus Ears, nose, mouth and throat: Denies headache, Denies sore throat - Breasts Breasts: bilateral: as per HPI - Cardiovascular Cardiovascular: Denies chest pain, Denies shortness of breath - Respiratory Comment: asthma/since a child, very premature weighed 3 pounds - Gastrointestinal Gastrointestinal: Denies abdominal pain, Denies diarrhea, Denies nausea, Denies vomiting - Genitourinary (Female) Genitourinary: Denies dysuria, Denies hematuria - Menstruation Menstruation: Reports postmenopausal - Musculoskeletal Musculoskeletal: Denies myalgias - Integumentary Integumentary: Denies pruritus, Denies rash - Neurological Neurological: Denies numbness, Denies weakness - Psychiatric Psychiatric: Denies anxiety, Denies depression - Endocrine Endocrine: Denies fatigue, Denies weight change - Hematologic/Lymphatic Comment: none - Allergic/Immunologic Allergic/Immunologic: Reports seasonal allergies Objective - Vital Signs Vital signs: Vital Signs Temp 98.2 F 10/25/20 08:50 Pulse 58 L 10/25/20 08:50 Resp 12 10/25/20 08:50 BP 131/75 10/25/20 08:50 Pulse Ox 99 10/25/20 08:50 Intake & Output 10/24/20 10/25/20 10/25/20 18:59 06:59 18:59 Weight 56.961 kg - Constitutional General appearance: Present: cooperative - EENT Eyes: Present: EOMI ENT: Present: hearing grossly normal - Neck Neck: Present: normal ROM - Respiratory Respiratory: bilateral: CTA - Cardiovascular Rhythm: regular Heart sounds: normal: S1, S2 - Integumentary Integumentary: Present: normal turgor - Musculoskeletal Musculoskeletal: Present: gait normal - Psychiatric Psychiatric: Present: A&O x's 3, appropriate affect, intact judgment & insight - Additional findings Additional findings: Breast exam: BRA: 36DD inspection: 3 ptosis bilateral Palpation: Right breast: Multi-positional exam fibrocystic changes, approximately 2-3 cm nodularity in the periareolar region at approximately 7:00 consistent with the prior tumor Right axilla: No palpable adenopathy of concern Left breast: Multi-positional exam fibrocystic changes no dominant masses or nodules of concern Left axilla: Shotty adenopathy non-worrisome Assessment and Plan Assessment: Impression: I have reviewed the radiographs with Dr. Guzman, the lesion appears to be unifocal in the right breast. Stage IIB right breast invasive ductal carcinoma, patient on neoadjuvant hormone therapy with good clinical response Patient presently on letrazole, tolerating this without difficulty Plan: Ultrasound of right breast to ascertain if the area has reduced in size, if the area has reduced in size will continue hormonal therapy if it has not reduced in size with discussed with Dr. Long regarding surgical intervention Follow up after ultrasound of the right breast CC: Dr. Reid
--- NOTE | 2020-10-25 10:39 | USB ---
Reason for exam: clinical finding. History: Patient is postmenopausal, has history of breast cancer at age 65, and is nulliparous. Family history of breast cancer in sister at age 50. Benign US biopsy breast add'l VAD LT of the left breast, July 05, 2020. Malignant US biopsy breast VAD RT of the right breast, July 05, 2020. Malignant US biopsy breast add'l VAD RT of the right breast, July 05, 2020. Malignant US biopsy breast add'l VAD RT of the right breast, July 05, 2020. US Breast Limited RT Right limited breast ultrasound including focal area of concern, retroareolar and axilla demonstrates a 2.3 x 2.4 x 1.9cm solid, hypoechoic lesion at 9 'clock, known cancer, prior 2.1 x 1.9 x 2.5cm, a 0.4 x 0.4 x 0.3cm solid, hypoechoic lesion at 11 o'clock, clip seen, known cancer, prior 1.5 x 1.5 x 0.8cm and a 3.3 x 2.8 x 1.8cm lymph lymph node and cancer at the axlla, prior 3.1 x 2.1 x 3.0cm. ASSESSMENT: Known biopsy proven malignancy, BI-RAD 6 RECOMMENDATION: Surgical consultation of the right breast. Dr. Sanchez seeing patient today, 10/25/20. PRELIMINARY REPORT CALLED AND FAXED TO DR. SANCHEZ ON 10/25/20.
== END ==
LOC: WWCWWP 08:40
PROVIDERS: ATTEND Surgery
DX: C50.411 Malignant neoplasm of upper-outer quadrant of right female breast (principal)

== ENCOUNTER 2020-12-17 08:55 | Emergency (ER) | payer BC, MEDICARE ==
[2020-12-17 08:59] VITALS: TEMP 98.9
[2020-12-17] MEDS ORDERED: SODIUM CHLORIDE 0.9% 1,000 ML IV STA (09:15)
[2020-12-17] MEDS ORDERED: KETOROLAC 15 MG/ML 1 ML VIAL IVP STA (09:15)
[2020-12-17] MEDS ORDERED: ONDANSETRON 4 MG/2 ML VIAL IVP STA (09:15)
--- NOTE | 2020-12-17 09:19 | ED ---
General Adult HPI - General Chief complaint: Nausea/Vomiting/Diarrhea Stated complaint: Nausea/Vomiting Time Seen by Provider: 12/17/20 09:00 Source: patient, RN notes reviewed Mode of arrival: ambulatory Limitations: no limitations - History of Present Illness Initial comments: Patient is 65-year-old female presenting to the ED for nausea vomiting diarrhea. Patient states that starting last night she started feeling unwell nauseous and vomiting. Patient states that episodes of nausea and vomiting have been constant since onset inability to keep anything down. Patient does also report left-sided flank pain that is made worse with palpation. Patient denies any history of kidney stones is currently under treatment for breast cancer. Patient reports slight decrease in appetite, mild constipation and decreased urination in the last day. Patient denies any cough, congestion, or headache at this time. - Related Data Home Medications Medication Instructions Recorded Confirmed Albuterol Sulfate [Albuterol 2 puff PO Q6H 06/28/20 10/25/20 Sulfate Hfa] Budesonide/Formoterol Fumarate 2 puff PO BID 06/28/20 10/25/20 [Budesonide-Formoterol 160-4.5] Cholecalciferol [Vitamin D3 (10 400 mcg PO QAM 06/28/20 10/25/20 Mcg = 400 Iu)] Montelukast [Singulair] 10 mg PO QAM 06/28/20 10/25/20 [place]-3 Fatty Acids [[place]-3] 400 mg PO QAM 06/28/20 10/25/20 Cyanocobalamin (Vitamin B-12) 1,000 mcg PO QAM 07/05/20 10/25/20 [Vitamin B-12] Multivitamin [Multivitamins Adult 1 each PO QAM 07/05/20 10/25/20 Gummies] Previous Rx's Medication Instructions Recorded Cephalexin [Keflex] 500 mg PO Q8HR #21 cap 12/17/20 Ketorolac [Toradol] 10 mg PO Q8HR #15 tab 12/17/20 Ondansetron Odt [Zofran Odt] 4 mg PO Q8HR PRN #10 tab 12/17/20 Allergies Allergy/AdvReac Type Severity Reaction Status Date / Time Latex, Natural Rubber Allergy Rash/Hives Verified 12/17/20 08:59 sulfite Allergy Wheezing Verified 12/17/20 08:59 Review of Systems ROS Statement: Those systems with pertinent positive or pertinent negative responses have been documented in the HPI. ROS Other: All systems not noted in ROS Statement are negative. Past Medical History Past Medical History: Asthma, Pneumonia Additional Past Medical History / Comment(s): eosinophilic esophagitis; right pneumothorax 1993; History of Any Multi-Drug Resistant Organisms: None Reported Past Surgical History: Orthopedic Surgery Additional Past Surgical History / Comment(s): left ankle surgery Past Anesthesia/Blood Transfusion Reactions: No Reported Reaction Past Psychological History: No Psychological Hx Reported Smoking Status: Never smoker Past Alcohol Use History: None Reported Past Drug Use History: None Reported General Exam Limitations: no limitations General appearance: alert, in no apparent distress Respiratory exam: Present: normal lung sounds bilaterally. Absent: respiratory distress, wheezes, rales, rhonchi, stridor Cardiovascular Exam: Present: regular rate, normal rhythm, normal heart sounds. Absent: systolic murmur, diastolic murmur, rubs, gallop, clicks GI/Abdominal exam: Present: soft, normal bowel sounds. Absent: distended, tenderness, guarding, rebound, rigid Back exam: Present: CVA tenderness (L) Neurological exam: Present: alert, oriented X3 Skin exam: Present: warm, dry, intact, normal color. Absent: rash Course Vital Signs 12/17/20 08:57 Temperature 98.9 F Pulse Rate 53 L Respiratory 20 Rate Blood Pressure 122/81 O2 Sat by Pulse 98 Oximetry Medical Decision Making - Medical Decision Making Patient presented with nausea vomiting and left-sided flank pain. Patient CT was positive for constipation as well as left-sided obstructing kidney stone. Patient will be sent home on MiraLAX course to help with constipation as well educated patient on fluid hydration and [id number]-[id number] pain medication to help with kidney stone. Return parameters were discussed. - Lab Data Result diagrams: 12/17/20 09:22 12/17/20 09:22 Lab Results 12/17/20 12/17/20 12/17/20 Range/Units 09:22 09:22 09:22 WBC 7.2 (3.8-10.6) k/uL RBC 4.62 (3.80-5.40) m/uL Hgb 14.7 (11.4-16.0) gm/dL Hct 42.0 (34.0-46.0) % MCV 90.9 (80.0-100.0) fL MCH 31.9 (25.0-35.0) pg MCHC 35.1 (31.0-37.0) g/dL RDW 13.9 (11.5-15.5) % Plt Count 240 (150-450) k/uL MPV 7.4 Neutrophils % 88 % Lymphocytes % 6 % Monocytes % 4 % Eosinophils % 0 % Basophils % 0 % Neutrophils # 6.4 (1.3-7.7) k/uL Lymphocytes # 0.4 L (1.0-4.8) k/uL Monocytes # 0.3 (0-1.0) k/uL Eosinophils # 0.0 (0-0.7) k/uL Basophils # 0.0 (0-0.2) k/uL Sodium 136 L (137-145) mmol/L Potassium 4.3 (3.5-5.1) mmol/L Chloride 102 (98-107) mmol/L Carbon Dioxide 29 (22-30) mmol/L Anion Gap 5 mmol/L BUN 11 (7-17) mg/dL Creatinine 0.73 (0.52-1.04) mg/dL Est GFR (CKD-EPI)AfAm >90 (>60 ml/min/1.73 sqM) Est GFR (CKD-EPI)NonAf 87 (>60 ml/min/1.73 sqM) Glucose 134 H (74-99) mg/dL Plasma Lactic Acid [place] (0.7-2.0) mmol/L Calcium 10.2 (8.4-10.2) mg/dL Total Bilirubin 0.4 (0.2-1.3) mg/dL AST 38 H (14-36) U/L ALT 17 (4-34) U/L Alkaline Phosphatase 38 (38-126) U/L Total Protein 6.5 (6.3-8.2) g/dL Albumin 4.1 (3.5-5.0) g/dL Lipase 46 (23-300) U/L Urine Color Yellow Urine Appearance Cloudy H (Clear) Urine pH 8.5 H (5.0-8.0) Ur Specific [place] 1.015 (1.001-1.035) Urine Protein Trace H (Negative) Urine Glucose (UA) Negative (Negative) Urine Ketones Negative (Negative) Urine Blood Negative (Negative) Urine Nitrite Negative (Negative) Urine Bilirubin Negative (Negative) Urine Urobilinogen <2.0 (<2.0) mg/dL Ur Leukocyte Esterase Negative (Negative) Urine RBC 3 (0-5) /hpf Urine WBC 11 H (0-5) /hpf Ur Squamous Epith Cells <1 (0-4) /hpf Calcium Oxalate Crystal Many H (None) /hpf Amorphous Sediment Occasional H (None) /hpf Urine Mucus Rare H (None) /hpf Coronavirus (PCR) (Not Detectd) 12/17/20 12/17/20 Range/Units 09:22 09:22 WBC (3.8-10.6) k/uL RBC (3.80-5.40) m/uL Hgb (11.4-16.0) gm/dL Hct (34.0-46.0) % MCV (80.0-100.0) fL MCH (25.0-35.0) pg MCHC (31.0-37.0) g/dL RDW (11.5-15.5) % Plt Count (150-450) k/uL MPV Neutrophils % % Lymphocytes % % Monocytes % % Eosinophils % % Basophils % % Neutrophils # (1.3-7.7) k/uL Lymphocytes # (1.0-4.8) k/uL Monocytes # (0-1.0) k/uL Eosinophils # (0-0.7) k/uL Basophils # (0-0.2) k/uL Sodium (137-145) mmol/L Potassium (3.5-5.1) mmol/L Chloride (98-107) mmol/L Carbon Dioxide (22-30) mmol/L Anion Gap mmol/L BUN (7-17) mg/dL Creatinine (0.52-1.04) mg/dL Est GFR (CKD-EPI)AfAm (>60 ml/min/1.73 sqM) Est GFR (CKD-EPI)NonAf (>60 ml/min/1.73 sqM) Glucose (74-99) mg/dL Plasma Lactic Acid [place] 1.4 (0.7-2.0) mmol/L Calcium (8.4-10.2) mg/dL Total Bilirubin (0.2-1.3) mg/dL AST (14-36) U/L ALT (4-34) U/L Alkaline Phosphatase (38-126) U/L Total Protein (6.3-8.2) g/dL Albumin (3.5-5.0) g/dL Lipase (23-300) U/L Urine Color Urine Appearance (Clear) Urine pH (5.0-8.0) Ur Specific [place] (1.001-1.035) Urine Protein (Negative) Urine Glucose (UA) (Negative) Urine Ketones (Negative) Urine Blood (Negative) Urine Nitrite (Negative) Urine Bilirubin (Negative) Urine Urobilinogen (<2.0) mg/dL Ur Leukocyte Esterase (Negative) Urine RBC (0-5) /hpf Urine WBC (0-5) /hpf Ur Squamous Epith Cells (0-4) /hpf Calcium Oxalate Crystal (None) /hpf Amorphous Sediment (None) /hpf Urine Mucus (None) /hpf Coronavirus (PCR) Not Detected (Not Detectd) Disposition Clinical Impression: Constipation, Calculus of kidney and ureter Disposition: HOME SELF-CARE Condition: Stable Instructions (If sedation given, give patient instructions): Kidney Stones (ED) Additional Instructions: Please return to the Emergency Department if symptoms worsen or any other concerns. Prescriptions: Cephalexin [Keflex] 500 mg PO Q8HR #21 cap Ketorolac [Toradol] 10 mg PO Q8HR #15 tab Ondansetron Odt [Zofran Odt] 4 mg PO Q8HR PRN #10 tab PRN Reason: Nausea Is patient prescribed a controlled substance at d/c from ED?: No Referrals: Quincy Reid DO [Primary Care Provider] - 1-2 days Arturo Patton MD [STAFF PHYSICIAN] - 1-2 days Time of Disposition: 10:58
[2020-12-17 09:56] LABS: Basophils % (A) 0 %; Eosinophils % (A) 0 %; HGB 14.7 gm/dL (11.4-16.0); Lymphocytes # (A) 0.4 k/uL (1.0-4.8); Lymphocytes % (A) 6 %; MCH 31.9 pg (25.0-35.0); MCHC 35.1 g/dL (31.0-37.0); MCV 90.9 fL (80.0-100.0); Mean Platelet Volume 7.4; Monocytes # (A) 0.3 k/uL (0-1.0); Monocytes % (A) 4 %; Neutrophils # (A) 6.4 k/uL (1.3-7.7); Neutrophils % (A) 88 %; Platelet Count 240 k/uL (150-450); RBC 4.62 m/uL (3.80-5.40); RDW 13.9 % (11.5-15.5); WBC 7.2 k/uL (3.8-10.6)
[2020-12-17 10:13] LABS: ALT 17 U/L (4-34); AST 38 U/L (14-36); African American GFR (CKD) >90 (>60 ml/min/1.73 sqM); Albumin 4.1 g/dL (3.5-5.0); Alkaline Phosphatase 38 U/L (38-126); Anion Gap 5 mmol/L; Blood Urea Nitrogen 11 mg/dL (7-17); Calcium 10.2 mg/dL (8.4-10.2); Carbon Dioxide 29 mmol/L (22-30); Chloride 102 mmol/L (98-107); Glucose 134 mg/dL (74-99); Lipase 46 U/L (23-300); Non-African American GFR(CKD) 87 (>60 ml/min/1.73 sqM); Potassium 4.3 mmol/L (3.5-5.1); Sodium 136 mmol/L (137-145); Total Bilirubin 0.4 mg/dL (0.2-1.3); Total Protein 6.5 g/dL (6.3-8.2)
--- NOTE | 2020-12-17 10:19 | CT ---
EXAMINATION TYPE: CT abdomen pelvis wo con DATE OF EXAM: 12/17/2020 COMPARISON: 08/02/2020 HISTORY: 65-year-old female left flank pain, nausea, vomiting CT DLP: 404.9 mGycm. Automated exposure control for dose reduction was used. TECHNIQUE: Contiguous axial scanning of the abdomen and pelvis without IV contrast. Coronal and sagit krzysztof reconstructions performed. FINDINGS: Heart normal size without pericardial effusion. Mild emphysematous change in the visualized lower gracy gs. No pleural effusion. Small hiatal hernia. A nonspecific 2.1 cm lateral right liver lobe lesion is unchanged from 08/02/2020 where no abnormal hy permetabolism was identified. Recommend nonemergent follow-up liver ultrasound to attempt further rosanna racterization. Noncontrast appearance of the gallbladder, right adrenal gland, spleen with inferior splenule, and pa ncreas show no gross of the mouth. Assessment limited due to lack of IV contrast. A 1.4 and 1.3 cm splenic artery aneurysm noted. Low density thickening left adrenal gland appears similar. There is moderate left hydronephrosis with a couple suspected calculi in the distal left ureter measu ring 4 mm and 3 mm. There is also left-sided perinephric fat stranding and edema tracking down the le ft retroperitoneum. Approximately 4 nonobstructive left renal calculi measuring up to 5 mm. On the right, there are 2 nonobstructive renal calculi measuring up to 8 mm. No dilated small bowel free fluid, or free air. However, there is severe stool burden. Stool distends the colon up to 7.0 cm. No discrete transition point is seen. The bladder is collapsed. Multiple clustered bowel loops in the pelvis limits adequate assessment. Ut erus not clearly visualized. No abnormal fluid collection identified in the pelvis. No obvious pelvic lymphadenopathy. Bones: Mild multilevel degenerative disc disease. Facet arthropathy lower lumbar spine. IMPRESSION: 1. A couple distal left ureteral calculi measuring 4 mm and 3 mm. There is moderate left-sided obstr uctive uropathy. Prominent perinephric edema on the left is likely reactive to the obstruction. Corre late to exclude superimposed infection. 2. Additional nonobstructive bilateral renal calculi measuring up to 8 mm. 3. Severe stool burden. Portions of the colon are distended up to 7 cm. Correlate for chronic consti pation. A cleansing enema would likely be of significant benefit to the patient. 4. A 2.1 cm lesion within the lateral right liver lobe, relatively unchanged from 08/02/2020. A benig n etiology such as a hemangioma is favored. Recommend nonemergent follow-up outpatient liver ultrasou nd to attempt further characterization. 5. Small hiatal hernia. A couple splenic artery aneurysms measuring 1.4 and 1.3 cm.
[2020-12-17 10:26] LABS: Amorphous Sediment,Urine Occasional /hpf; Appearance,Urine Cloudy (Clear); Bilirubin,Urine Negative (Negative); Blood,Urine Negative (Negative); Calcium Oxalate Crystals,Urine Many /hpf; Color,Urine Yellow; Glucose,Urine (UA) Negative (Negative); Ketones,Urine Negative (Negative); Leukocyte Esterase,Urine Negative (Negative); Mucus,Urine Rare /hpf; Nitrite,Urine Negative (Negative); PH, Urine 8.5 (5.0-8.0); Protein,Urine Trace (Negative); RBC,Urine 3 /hpf (0-5); Specific Gravity,Urine 1.015 (1.001-1.035); Squamous Epithelial Cell,Urine <1 /hpf (0-4); Urobilinogen,Urine <2.0 mg/dL (<2.0); WBC,Urine 11 /hpf (0-5)
[2020-12-17 11:10] VITALS: BP 97/57; PULSE 58; RESP 18
== END 2020-12-17 11:26 | disposition home or self-care (01) ==
LOC: EC 08:55
DX: N13.2 Hydronephrosis with renal and ureteral calculous obstruction (principal); K59.00 Constipation, unspecified; J45.909 Unspecified asthma, uncomplicated; Z20.822 Contact with and (suspected) exposure to COVID-19; Z91.040 Latex allergy status; Z88.2 Allergy status to sulfonamides; Z79.51 Long term (current) use of inhaled steroids
CPT/HCPCS: 36415; 80053; 83605; 83690; 85025; 81001; 87086; 87635; 74176; 99284; 96374; 96375; 96361; J2405; J1885

== ENCOUNTER → 2021-01-09 | Outpatient (CLI) | payer BC, MEDICARE ==
[2021-01-09 14:39] VITALS: BP 116/79; PULSE 72; RESP 16; TEMP 98.8
--- NOTE | 2021-01-09 15:16 | P.PN ---
Subjective Progress Note Date: 01/09/21 Principal diagnosis: stage IIB right breast cancer stage IIB right breast cancer Silva is a 65-year-old white female seen in consultation for Dr. Reid regarding a mass in her right breast and bilateral mammographic/ultrasound abnormalities. The patient states approximately March she noted a mass in her right breast. She states that the skin was discolored as though she had a bruise although she did not recall any trauma. Since that time the area of fullness has decreased in size. She does not complain of any pain in her breast. She had bilateral mammogram performed on 5520. This revealed multiple bilateral punctate calcifications, a 2.1 cm mass at the site of palpable palpable abnormality in the right breast, and distortion upper outer quadrant left breast 6 cm from the nipple. Recommendation was for bilateral breast ultrasound. Bilateral breast ultrasound was performed on the same date and this revealed: Right breast: 2.1 x 2.5 cm solid lesion with calcifications at 9:00, 1.5 x 1.5 cm solid lesion with calcifications at 11:00, and 3.1 x 2.1 cm irregular lymph node at the axilla, biopsy recommended. Left breast: 1.5 cm solid lesion with calcifications at 1:00 biopsy recommended She had not had mammograms performed for many years prior to this. She has not noted any nipple discharge or skin changes. She has not had any recent infection of the breast. She's never had any surgery of the breast. She states she has had a recent 75 pound weight loss which was intentional. 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 She believes the tumor has shrunken. The patient is nearing completion of her neoadjuvant therapy. She is ready to schedule for surgery. note from Dr. Silver noted from 01-08-21 Caffeine: 2 cups green tea per day Nicotine: Negative, never smoker Chocolate: Occasional Family history: sister: of breast cancer at 51 maternal cousin: brain cancer maternal cousin: leukemia Hormonal history: Menarche: 12 G0 menopause: 39, natural BCP: none hormones: none Surgical history: left ankle and leg trauma Medical History: asthma Eosinophilic esophagitis, diet controlled Social history: Nicotine: Negative Alcohol: Negative Drugs: Negative - Constitutional Constitutional: Denies chills, Denies fever - EENT Comment: beginnings of cataracts, wears glasses Eyes: denies blurred vision, denies pain Ears: deny: decreased hearing, tinnitus Ears, nose, mouth and throat: Denies headache, Denies sore throat - Breasts Breasts: bilateral: as per HPI - Cardiovascular Cardiovascular: Denies chest pain, Denies shortness of breath - Respiratory Comment: asthma/since a child, very premature weighed 3 pounds - Gastrointestinal Gastrointestinal: Denies abdominal pain, Denies diarrhea, Denies nausea, Denies vomiting - Genitourinary (Female) Genitourinary: Denies dysuria, Denies hematuria - Menstruation Menstruation: Reports postmenopausal - Musculoskeletal Musculoskeletal: Denies myalgias - Integumentary Integumentary: Denies pruritus, Denies rash - Neurological Neurological: Denies numbness, Denies weakness - Psychiatric Psychiatric: Denies anxiety, Denies depression - Endocrine Endocrine: Denies fatigue, Denies weight change - Hematologic/Lymphatic Comment: none - Allergic/Immunologic Allergic/Immunologic: Reports seasonal allergies Objective - Vital Signs Vital signs: Intake & Output 01/08/21 01/09/21 01/09/21 18:59 06:59 18:59 Weight 58.06 kg - Exam BMI 20 - Constitutional General appearance: Present: average body habitus - EENT Eyes: Present: EOMI ENT: Present: hearing grossly normal - Neck Neck: Present: normal ROM - Respiratory Respiratory: bilateral: CTA - Cardiovascular Rhythm: regular Heart sounds: normal: S1, S2 - Gastrointestinal General gastrointestinal: Present: soft - Integumentary Integumentary: Present: normal turgor - Musculoskeletal Musculoskeletal: Present: gait normal - Psychiatric Psychiatric: Present: A&O x's 3, appropriate affect, intact judgment & insight - Additional findings Additional findings: Breast Exam: BRA: 36DD Inspection: bilateral grade 3 ptosis palpation: right breast: Multi-positional exam reveals approximately 2.5 cm solid mass at between the 7 to 8 o'clock position of the right breast close to the skin but freely mobile, no other dominant masses or nodules of concern Right axilla: Positive fullness Left breast: Multi-positional exam no dominant masses or nodules of concern Left axilla: No adenopathy of concern Assessment and Plan Assessment: Impression: 1. Right breast invasive ductal carcinoma approximately 7 to 9 o'clock position approximately 2.5 cm in size 2. Right positive axillary adenopathy 3. Fibrocystic breast changes Plan: 1. Needle localization of right axillary lymph node, with an axillary node dissection, lumpectomy right breast possible onco-plastic tissue transfer, possible removal of nipple areolar complex 2. pre-op clearance Dr. Reid Risks and benefits of the surgery are discussed with the patient. They include but are not limited to bleeding, infection, reaction to the anesthetic. If margins are positive its possible she would need to have a reexcision. She knows that she will have asymmetry between the breasts. She may lose the nipple areolar complex on the right. Additionally the patient is going to be seen by lymphedema specialist prior to the surgery. Related to the axillary dissection she may have decreased sensation to the inner arm. Possibility of injury to the thoracodorsal or long thoracic nerves, bleeding, infection, reaction to the anesthetic. She is given option of s Time spent 30 minutes, physical examination, review of records, and discussion of treatment options.
== END | disposition home or self-care (01) ==
LOC: WWCWWP 13:58
PROVIDERS: ATTEND Surgery
DX: Z53.9 Procedure and treatment not carried out, unspecified reason (principal)

== ENCOUNTER 2021-01-21 06:37 | Day surgery (SDC) | payer BC, MEDICARE ==
[~2021-01-21 06:37] MED LIST: HEPARIN SODIUM,PORCINE/PF 5,000 UNIT/0.5 ML SYRINGE SQ PRN; Pre Op ABX Message 1 EACH MISC MISCELLANE ONE
[2021-01-21] MEDS ORDERED: LIDOCAINE 1% (10MG/ML) FOR IV START INTRADERMA ONE (07:20)
[2021-01-21] MEDS ORDERED: LACTATED RINGERS 1,000 ML IV ONE ×2 (07:20→10:34)
[2021-01-21 07:31] VITALS: RESP 16
[2021-01-21] MEDS ORDERED: LIDOCAINE 1% INJ 10MG/ML (20 ML MDV) SQ ONE ×6 (08:13→11:52)
[2021-01-21] MEDS ORDERED: ONDANSETRON 4 MG/2 ML VIAL ONE (09:00)
[2021-01-21] MEDS ORDERED: DEXAMETHASONE SOD PHOSPHATE 4 MG/ML 1 ML VIAL IV ONE (09:00)
[2021-01-21] MEDS ORDERED: ePHEDrine 50 MG/ML 1 ML AMP ONE (09:09)
[2021-01-21] MEDS ORDERED: PHENYLEPHRINE-0.9% NACL SYG 1,000 MCG/10 ML SYRINGE ONE (09:09)
[2021-01-21] MEDS ORDERED: LIDOCAINE 1% INJ 10MG/ML (20 ML MDV) ONE (09:09)
[2021-01-21] MEDS ORDERED: MIDAZOLAM 2 MG/2 ML VIAL ONE (09:09)
[2021-01-21] MEDS ORDERED: PROPOFOL 10 MG/ML 20 ML VIAL IV ONE (09:09)
[2021-01-21] MEDS ORDERED: fentaNYL (PF) 50 MCG/ML 2 ML AMP ONE (09:09)
[2021-01-21] MEDS ORDERED: SODIUM CHLORIDE 0.9% 100 ML with ceFAZolin 2,000 MG IV ONE ×2 (09:14)
[2021-01-21] MEDS ORDERED: METHYLENE BLUE 50 MG/10 ML AMPUL MISCELLANE ONE (09:28)
--- NOTE | 2021-01-21 09:30 | P.NAPBC ---
NAPBC Queries - NAPBC Queries Was patient's case review presented at [facility] tumor board? If no, comment.: Yes Was patient's pathology reviewed at [facility]? If no, comment.: Yes Was breast conservation surgery offered? If no, comment.: Yes Was sentinel node biopsy offered? If no, comment.: No (positive clinical node and status post froylan-adjuvant therapy) Was diagnosis confirmed by percutaneous core biopsy? If no, comment.: Yes Is patient mastectomy patient?: No Was a preop referral to reconstructive surgeon offered?: Yes Clinical Stage: IIB
--- NOTE | 2021-01-21 12:11 | P.OP ---
Date of Procedure: 01/21/21 Preoperative Diagnosis: Stage IIB right breast invasive carcinoma Postoperative Diagnosis: Same Procedure(s) Performed: Right breast axillary node dissection, right breast lumpectomy, onco plastic tissue transfer 66 cm Anesthesia: GRANT Surgeon: Lety Sanchez Estimated Blood Loss (ml): 30 IV fluids (ml): 1,000 Pathology: other (Right axillary contents, breast tissue and skin) Condition: stable Disposition: same day Indications for Procedure: Invasive right breast cancer, disease in lymph node Operative Findings: Fibrofatty breast tissue, palpable right axillary adenopathy Description of Procedure: Farhana is a 65-year-old white female diagnosed with a stage IIB right breast invasive carcinoma. She underwent preoperative localization of the axillary lymph node of concern as well as of the tumor in the breast. She was brought to the operative suite where the axillary dissection was performed initially. An incision was made in the axillary hairline. This was carried through the skin and subcutaneous tissue to the axillary tissue. Dissection was performed to the pectoralis minor muscle. This was followed laterally being careful to sweep the lymph node of concern up with the tissue. The lymph node of concern was in close proximity to the axillary vein. Careful dissection was performed taking this tissue down from the axillary vein area. Feeding vessels were ligated and divided. The thoracodorsal and long thoracic nerves were identified and carefully preserved. The tissue continued to be swept laterally with removal of the axillary specimen. A complete axillary dissection was performed. No palpable adenopathy was persistent. The intercostal brachial nerves were removed with the specimen secondary to the proximity of the enlarged lymph nodes. The deep tissues were closed using 3-0 Vicryl suture. UMU drain was placed and secured with a nylon suture. The skin was closed using 4-0 Monocryl. The breast was approached. An inferior incision was made with removal of the nipple areolar complex and skin in a V pattern as the tumor appeared to be closely adherent under this area. The breast skin was very redundant and to accommodate closure a portion of skin was removed. The specimen was painted for orientation. Radiograph revealed the area of concern had been removed. Titanium clips were placed to tabitha the cavity. The medial and lateral pillars of tissue were mobilized 33 cm each for a total of 66 cm. The medial and lateral pillars of tissue were brought together using 3-0 Vicryl suture. Dissection was performed posteriorly onto the pectoralis muscle. A UMU drain was placed. Surgicel in powder form was placed after we were sure that hemostasis was attained. The skin was closed using 3-0 Vicryl suture followed by 4-0 Monocryl. The UMU drain was secured using a nylon suture. The patient tolerated the procedure in stable condition. All instrument and sponge counts were correct at the end of the case.
--- NOTE | 2021-01-21 12:15 | P.DS ---
Providers Attending physician: Lety Sanchez Primary care physician: Quincy Reid Plan - Discharge Summary Discharge Rx Participant: Yes New Discharge Prescriptions: No Action Cholecalciferol [Vitamin D3 (10 Mcg = 400 Iu)] 400 mcg PO QAM Budesonide/Formoterol Fumarate [Budesonide-Formoterol 160-4.5] 2 puff PO BID Cyanocobalamin (Vitamin B-12) [Vitamin B-12] 1,000 mcg PO QAM Alendronate Sodium [Fosamax] 70 mg PO Q7D Ascorbic Acid [Vitamin C] 500 mg PO DAILY Albuterol Sulfate [Albuterol Sulfate Hfa] 2 puff PO Q6H PRN PRN Reason: Shortness Of Breath Montelukast [Singulair] 10 mg PO QAM Bolton-3 Fatty Acids [Bolton-3] 400 mg PO QAM Multivitamin [Multivitamins Adult Gummies] 1 each PO QAM Magnesium Citrate 125 mcg PO DAILY Letrozole [Femara] 2.5 mg PO DAILY Turmeric Root Extract [Turmeric] 500 mg PO DAILY Discharge Medication List Albuterol Sulfate [Albuterol Sulfate Hfa] 2 puff PO Q6H PRN 06/28/20 [History] Budesonide/Formoterol Fumarate [Budesonide-Formoterol 160-4.5] 2 puff PO BID 06/28/20 [History] Cholecalciferol [Vitamin D3 (10 Mcg = 400 Iu)] 400 mcg PO QAM 06/28/20 [History] Montelukast [Singulair] 10 mg PO QAM 06/28/20 [History] Bolton-3 Fatty Acids [Bolton-3] 400 mg PO QAM 06/28/20 [History] Cyanocobalamin (Vitamin B-12) [Vitamin B-12] 1,000 mcg PO QAM 07/05/20 [History] Multivitamin [Multivitamins Adult Gummies] 1 each PO QAM 07/05/20 [History] Letrozole [Femara] 2.5 mg PO DAILY 01/09/21 [History] Magnesium Citrate 125 mcg PO DAILY 01/09/21 [History] Alendronate Sodium [Fosamax] 70 mg PO Q7D 01/15/21 [History] Ascorbic Acid [Vitamin C] 500 mg PO DAILY 01/20/21 [History] Turmeric Root Extract [Turmeric] 500 mg PO DAILY 01/20/21 [History] Follow up Appointment(s)/Referral(s): Lety Sanchez MD [STAFF PHYSICIAN] - 01/30/21 4:20 pm Activity/Diet/Wound Care/Special Instructions: teach patient drain care, drain and record for each drian daily and as needed wear bra at all times may shower after [address] if taking narcotic pain medicine Discharge Disposition: HOME SELF-CARE
[2021-01-21 12:40] VITALS: TEMP 98.6
[2021-01-21 13:52] VITALS: BP 109/66; PULSE 70
--- NOTE | 2021-01-21 17:33 | USB ---
EXAMINATION TYPE: US breast localization RT DATE OF EXAM: 01/21/2021 COMPARISON: Ultrasound 10/25/2020 CLINICAL HISTORY: Abnormal biopsy, malignancy TECHNIQUE: Ultrasound images are reviewed. The abnormal lymph node in abnormality by ultrasound are i dentified within the right breast. FINDINGS: The procedure was explained to the patient, risks and benefits and all questions were answe red. A timeout was performed. The overlying skin was prepped and draped in usual sterile fashion. Lidocaine 1% was used as anesthe tic into the skin and subcutaneous tissue up to the level of area of concern. A 5 cm needle was used . This was placed via a lateral approach under ultrasound guidance. The wire was placed through the needle and the needle was withdrawn. The wire was fixed to patient's skin. This procedure was repeated for the axillary lymph node. Care was made to direct the wire away from t he axillary vein. Patient was transferred to mammography for imaging of the wires. Images were marked for surgeon. Ge mographic images were reviewed with the surgeon in person. The case was discussed including the proxi mity to the axillary vein near the enlarged axillary lymph node. The patient tolerated the procedure well without any immediate complication. Specimen lymph node: The wire and the targeted lymph node are identified within the specimen mammogra m. The wire tip appears to be broken from the wire but within the sample. Specimen breast: The wire and the targeted mass are identified within the specimen mammogram. IMPRESSION: 1. Successful wire localization and excision right breast mass and right axillary lymph node. Recommendations: 1. Recommendations are pending pathology results.
--- NOTE | 2021-01-21 17:38 | MM ---
EXAMINATION TYPE: US breast localization RT DATE OF EXAM: 01/21/2021 COMPARISON: Ultrasound 10/25/2020 CLINICAL HISTORY: Abnormal biopsy, malignancy TECHNIQUE: Ultrasound images are reviewed. The abnormal lymph node in abnormality by ultrasound are i dentified within the right breast. FINDINGS: The procedure was explained to the patient, risks and benefits and all questions were answe red. A timeout was performed. The overlying skin was prepped and draped in usual sterile fashion. Lidocaine 1% was used as anesthe tic into the skin and subcutaneous tissue up to the level of area of concern. A 5 cm needle was used . This was placed via a lateral approach under ultrasound guidance. The wire was placed through the needle and the needle was withdrawn. The wire was fixed to patient's skin. This procedure was repeated for the axillary lymph node. Care was made to direct the wire away from t he axillary vein. Patient was transferred to mammography for imaging of the wires. Images were marked for surgeon. Ge mographic images were reviewed with the surgeon in person. The case was discussed including the proxi mity to the axillary vein near the enlarged axillary lymph node. The patient tolerated the procedure well without any immediate complication. Specimen lymph node: The wire and the targeted lymph node are identified within the specimen mammogra m. The wire tip appears to be broken from the wire but within the sample. Specimen breast: The wire and the targeted mass are identified within the specimen mammogram. Clip i s difficult to differentiate from the dense calcifications. IMPRESSION: 1. Successful wire localization and excision right breast mass and right axillary lymph node. Recommendations: 1. Recommendations are pending pathology results.
--- NOTE | 2021-01-22 08:38 | MM ---
Reason for exam: additional evaluation requested from abnormal screening. Last mammogram was performed 7 months ago. History: Patient is postmenopausal, has history of breast cancer at age 65, and is nulliparous. Family history of breast cancer in sister at age 50. Benign US biopsy breast add'l VAD LT of the left breast, July 05, 2020. Malignant US biopsy breast VAD RT of the right breast, July 05, 2020. Malignant US biopsy breast add'l VAD RT of the right breast, July 05, 2020. Malignant US biopsy breast add'l VAD RT of the right breast, July 05, 2020. MG Diagnostic Mammo RT Wo CAD LM and XCCL view(s) were taken of the right breast. Prior study comparison: July 05, 2020, bilateral MG diagnostic floyd BI wo CAD. June 26, 2020, bilateral MG 3d diag mammo w/cad ALONSO. ASSESSMENT: Post procedure mammogram for marker placement RECOMMENDATION: Ultrasound of the right breast in 6 months. PENDING PATHOLOGY RESULTS.
== END 2021-01-21 14:33 | disposition home or self-care (01) ==
LOC: OR 06:37
PROVIDERS: ATTEND Surgery
DX: C50.911 Malignant neoplasm of unspecified site of right female breast (principal)
CPT/HCPCS: 19285; 19286; 77065; 76098; C1819; J2250; J1100; J2405; J0690; J2001; J3010; J2370; J2704; Q9968; J1790; J1644

== ENCOUNTER → 2021-01-30 | Outpatient (CLI) | payer BC, MEDICARE ==
--- NOTE | 2021-01-30 10:19 | P.PN ---
Subjective Progress Note Date: 01/30/21 Principal diagnosis: Right breast invasive ductal carcinoma stage IIB right breast cancer stage IIB right breast cancer Silva is a 65-year-old white female seen in consultation for Dr. Reid regarding a mass in her right breast and bilateral mammographic/ultrasound abnormalities. The patient states approximately March she noted a mass in her right breast. She states that the skin was discolored as though she had a bruise although she did not recall any trauma. Since that time the area of fullness has decreased in size. She does not complain of any pain in her breast. She had bilateral mammogram performed on 5520. This revealed multiple bilateral punctate calci fications, a 2.1 cm mass at the site of palpable palpable abnormality in the right breast, and distortion upper outer quadrant left breast 6 cm from the nipple. Recommendation was for bilateral breast ultrasound. Bilateral breast ultrasound was performed on the same date and this revealed: Right breast: 2.1 x 2.5 cm solid lesion with calcifications at 9:00, 1.5 x 1.5 cm solid lesion with calcifications at 11:00, and 3.1 x 2.1 cm irregular lymph node at the axilla, biopsy recommended. Left breast: 1.5 cm solid lesion with calcifications at 1:00 biopsy recommended She had not had mammograms performed for many years prior to this. She has not noted any nipple discharge or skin changes. She has not had any recent infection of the breast. She's never had any surgery of the breast. She states she has had a recent 75 pound weight loss which was intentional. 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 She believes the tumor has shrunken. The patient underwent right breast lumpectomy and axillary node dissection on [id number]. One of 4 nodes was positive with the node be nearly replaced by tumor. The lumpectomy site revealed invasive carcinoma at the superior/posterior margin. The patient is doing well postoperatively with no complaints related to the procedure. Caffeine: 2 cups green tea per day Nicotine: Negative, never smoker Chocolate: Occasional Family history: sister: of breast cancer at 51 maternal cousin: brain cancer maternal cousin: leukemia Hormonal history: Menarche: 12 G0 menopause: 39, natural BCP: none hormones: none Surgical history: left ankle and leg trauma Medical History: asthma Eosinophilic esophagitis, diet controlled Social history: Nicotine: Negative Alcohol: Negative Drugs: Negative Objective - Constitutional General appearance: Present: cooperative - EENT Eyes: Present: EOMI ENT: Present: hearing grossly normal - Neck Neck: Present: normal ROM - Respiratory Respiratory: bilateral: CTA - Cardiovascular Rhythm: regular Heart sounds: normal: S1, S2 - Integumentary Integumentary: Present: normal turgor - Musculoskeletal Musculoskeletal: Present: gait normal - Psychiatric Psychiatric: Present: A&O x's 3, appropriate affect, intact judgment & insight - Additional findings Additional findings: Incision right breast clean and dry; no evidence of any infection UMU #1 approximately 20 mL per day serous UMU #2 approximately 5-8 mL per day serous Assessment and Plan Assessment: Impression: Patient status post right breast lumpectomy and axillary node dissection/positive superior margin Plan: re- resection of superior margin right lumpectomy site UMU drains removed The risk and benefits of resection of superior/posterior margin discussed with the patient. Risks include but are not limited to bleeding, infection, reaction to the anesthetic. Additionally the patient understands if the margins were to be positive again she may require reexcision/mastectomy. She understands that the breast will be slightly smaller. CC: Dr. Reid
[2021-01-30 10:42] VITALS: BP 145/80; PULSE 64; RESP 18; TEMP 98.6
== END | disposition home or self-care (01) ==
LOC: WWCWWP 09:18
PROVIDERS: ATTEND Surgery
DX: Z53.9 Procedure and treatment not carried out, unspecified reason (principal)

== ENCOUNTER 2021-02-04 12:07 | Day surgery (SDC) | payer BC, MEDICARE ==
[2021-01-31 09:54] VITALS: BMI 20.3
[~2021-02-04 12:07] MED LIST changes: +DEXAMETHASONE SOD PHOSPHATE 4 MG/ML 1 ML VIAL IV ONE; +HYDROmorphone 0.5 MG/0.5 ML SYRINGE IVP PRN; +LACTATED RINGERS 1,000 ML IV SCH; +ONDANSETRON 4 MG/2 ML VIAL IVP ONE
[2021-02-04 12:45] VITALS: RESP 16
[2021-02-04] MEDS ORDERED: PROPOFOL 10 MG/ML 20 ML VIAL IV ONE (14:25)
[2021-02-04] MEDS ORDERED: LIDOCAINE 1% INJ 10MG/ML (20 ML MDV) ONE (14:25)
[2021-02-04] MEDS ORDERED: MIDAZOLAM 2 MG/2 ML VIAL ONE (14:25)
[2021-02-04] MEDS ORDERED: .fentaNYL (PF) 50 MCG/ML 2 ML AMP ONE (14:25)
[2021-02-04] MEDS ORDERED: ePHEDrine 50 MG/ML 1 ML AMP ONE (14:25)
[2021-02-04] MEDS ORDERED: SODIUM CHLORIDE 0.9% 100 ML with ceFAZolin 2,000 MG IV ONE ×2 (14:49)
[2021-02-04] MEDS ORDERED: LIDOCAINE 1% INJ 10MG/ML (20 ML MDV) SQ ONE ×2 (14:53)
--- NOTE | 2021-02-04 15:51 | P.OP ---
Date of Procedure: 02/04/21 Preoperative Diagnosis: Positive superior margin for invasive ductal carcinoma anterior and posterior aspect Postoperative Diagnosis: Same Procedure(s) Performed: Right excision of surgical margins superior extending from anterior to posterior onto the pectoralis muscle and anteriorly to the skin Anesthesia: GRANT Surgeon: Lety Sanchez Estimated Blood Loss (ml): 10 IV fluids (ml): 600 Pathology: other (Breast tissue) Condition: stable Disposition: same day Indications for Procedure: Positive superior margin from lumpectomy site Operative Findings: Dense fibroglandular breast tissue Description of Procedure: The patient was brought to the operating room and following induction of anesthesia the right breast was prepped and draped in a sterile fashion. The vertical limb of the prior incision was opened as well as the right lateral aspect at the inferior portion of the breast. Dissection was performed down to the area of prior lumpectomy. The tissue had been mobilized approximated at this site and this was opened. The cavity was identified. The superior margin was obtained throughout anterior to posterior aspect of the superior margin. The anterior and posterior areas of this were identified and painted. After we were assured that hemostasis was attained titanium clips were placed. The cavity was closed using 3-0 Vicryl suture. This is followed by closure of the skin using 3-0 subcutaneous suture followed by 4-0 Monocryl and a nylon skin suture. The patient tolerated the procedure in stable condition. All instrument and sponge counts were correct at the end of the case. 10 mL of 1% lidocaine placed at the end of the case. 10 cc of 1% lidocaine was placed at the end of the case.
--- NOTE | 2021-02-04 15:54 | P.DS ---
Providers Attending physician: Lety Sancehz Primary care physician: Quincy Reid Plan - Discharge Summary Discharge Rx Participant: Yes New Discharge Prescriptions: No Action Cholecalciferol [Vitamin D3 (10 Mcg = 400 Iu)] 400 mcg PO QAM Budesonide/Formoterol Fumarate [Budesonide-Formoterol 160-4.5] 2 puff PO BID Cyanocobalamin (Vitamin B-12) [Vitamin B-12] 1,000 mcg PO QAM Alendronate Sodium [Fosamax] 70 mg PO WATSON Ascorbic Acid [Vitamin C] 500 mg PO DAILY Albuterol Sulfate [Albuterol Sulfate Hfa] 2 puff PO Q6H PRN PRN Reason: Shortness Of Breath Montelukast [Singulair] 10 mg PO QAM [place]-3 Fatty Acids [[place]-3] 400 mg PO QAM Multivitamin [Multivitamins Adult Gummies] 1 each PO QAM Magnesium Citrate 125 mcg PO DAILY Letrozole [Femara] 2.5 mg PO DAILY Turmeric Root Extract [Turmeric] 500 mg PO DAILY Discharge Medication List Albuterol Sulfate [Albuterol Sulfate Hfa] 2 puff PO Q6H PRN 06/28/20 [History] Budesonide/Formoterol Fumarate [Budesonide-Formoterol 160-4.5] 2 puff PO BID 06/28/20 [History] Cholecalciferol [Vitamin D3 (10 Mcg = 400 Iu)] 400 mcg PO QAM 06/28/20 [History] Montelukast [Singulair] 10 mg PO QAM 06/28/20 [History] [place]-3 Fatty Acids [[place]-3] 400 mg PO QAM 06/28/20 [History] Cyanocobalamin (Vitamin B-12) [Vitamin B-12] 1,000 mcg PO QAM 07/05/20 [History] Multivitamin [Multivitamins Adult Gummies] 1 each PO QAM 07/05/20 [History] Letrozole [Femara] 2.5 mg PO DAILY 01/09/21 [History] Magnesium Citrate 125 mcg PO DAILY 01/09/21 [History] Alendronate Sodium [Fosamax] 70 mg PO WATSON 01/15/21 [History] Ascorbic Acid [Vitamin C] 500 mg PO DAILY 01/20/21 [History] Turmeric Root Extract [Turmeric] 500 mg PO DAILY 01/20/21 [History] Follow up Appointment(s)/Referral(s): Lety Sanchez MD [STAFF PHYSICIAN] - 02/07/21 12:00 pm Patient Instructions/Handouts: *Surgery [facility] - (Anesthesia) Discharge Instructions Outpatient Surgery Activity/Diet/Wound Care/Special Instructions: do not drive today wear bra at all times may shower after 48 hours Discharge Disposition: HOME SELF-CARE
[2021-02-04 16:13] VITALS: TEMP 97.1
[2021-02-04 17:23] VITALS: BP 116/72; PULSE 73
== END 2021-02-04 17:35 | disposition home or self-care (01) ==
LOC: OR 12:07
PROVIDERS: ATTEND Surgery
DX: N64.1 Fat necrosis of breast (principal); N60.31 Fibrosclerosis of right breast; Z80.6 Family history of leukemia; Z80.8 Family history of malignant neoplasm of other organs or systems; Z80.3 Family history of malignant neoplasm of breast; J45.909 Unspecified asthma, uncomplicated; K20.0 Eosinophilic esophagitis; Z79.51 Long term (current) use of inhaled steroids; Z79.899 Other long term (current) drug therapy; Z86.711 Personal history of pulmonary embolism; Z88.2 Allergy status to sulfonamides; Z91.040 Latex allergy status
CPT/HCPCS: 88307; 19301; J2250; J1100; J2405; J0690; J2001; J3010; J2704; J1644

== ENCOUNTER → 2021-02-07 | Outpatient (CLI) | payer BC ==
[2021-02-07 12:33] VITALS: BP 125/87; PULSE 90; RESP 16; TEMP 98.3
--- NOTE | 2021-02-07 13:04 | P.PN ---
Subjective Progress Note Date: 02/07/21 Farhana is a 65-year-old white female status post right breast lumpectomy and axillary node dissection on 11290325. At that time pathology revealed positive anterior superior and posterior superior margin. She had reexcision of this area performed on 12130325 and no residual tumor was identified. She is doing well post procedure. At the original resection on 01-21-21 the patient had 1 of 4 nodes positive for tumor the tumor size was 2.4 cm. Objective - Vital Signs Vital signs: Vital Signs Temp 98.3 F 02/07/21 12:29 Pulse 90 02/07/21 12:29 Resp 16 02/07/21 12:29 BP 125/87 02/07/21 12:29 Pulse Ox Intake & Output 02/06/21 02/07/21 02/07/21 18:59 06:59 18:59 Weight 57.153 kg - Constitutional General appearance: Present: cooperative - EENT Eyes: Present: EOMI ENT: Present: hearing grossly normal - Neck Neck: Present: normal ROM - Respiratory Respiratory: bilateral: CTA - Cardiovascular Heart sounds: normal: S1, S2 - Integumentary Integumentary Comment(s): Incision clean and dry right breast as well as right axilla Assessment and Plan Assessment: Impression: Patient doing well status post right lumpectomy and axillary node resection Plan: Follow-up medical oncology Follow-up radiation oncology Follow-up next week for suture removal CC: Dr. Reid
== END | disposition home or self-care (01) ==
LOC: WWCWWP 11:53
PROVIDERS: ATTEND Surgery
DX: Z53.9 Procedure and treatment not carried out, unspecified reason (principal)

== ENCOUNTER → 2021-02-10 | Outpatient (CLI) | payer BC ==
[2021-02-10 11:07] VITALS: BP 122/75; PULSE 66; RESP 18; TEMP 99.1
--- NOTE | 2021-02-10 11:22 | P.PN ---
Progress Note - Text Progress Note Date: 02/10/21 Farhana is a 65-year-old white female status post right breast lumpectomy and axillary node dissection on 11290325. At that time pathology revealed positive anterior superior and posterior superior margin. She had reexcision of this area performed on 12130325 and no residual tumor was identified. She is doing well post procedure. At the original resection on 01-21-21 the patient had 1 of 4 nodes positive for tumor the tumor size was 2.4 cm. Physical examination: Incision clean and dry Impression: Reexcision of lumpectomy site, no residual tumor Plan: Removal of sutures Follow-up medical oncology Follow-up radiation oncology Follow-up with me in 3 weeks CC: Dr. Reid
== END | disposition home or self-care (01) ==
LOC: WWCWWP 10:56
PROVIDERS: ATTEND Surgery
DX: Z53.9 Procedure and treatment not carried out, unspecified reason (principal)

== ENCOUNTER → 2021-02-27 | Outpatient (CLI) | payer BC ==
[2021-02-27 08:47] VITALS: BP 128/84; PULSE 55; RESP 18; TEMP 97.7
--- NOTE | 2021-02-27 09:08 | P.PN ---
Progress Note - Text Progress Note Date: 02/27/21 Silva is a 65-year-old white female status post right breast lumpectomy and axillary node dissection on 11290325. Pathology revealed a positive anterior superior and posterior superior margin. She had reexcision of the area performed on 12130325 and no residual tumor was identified. She has not yet seen radiation oncology. She was taking blood to solid the present time. She will follow up with radiation oncology. She has no complaints related to the breast at this time. She states she still has some discomfort under the right arm. Physical examination: lungs: clear heart: RRR incision: The trifurcation of the incision is slightly open and there is a internal suture. The knot was exposed No evidence of any infection Right axillary incision clean and dry Impression/plan: Patient doing well small opening at the trifurcation of the breast incision this is recommended to be reinforced She was following up with medical oncology Appointment with radiation oncology Following informed consent the area of concern in the right breast was prepped using Betadine. The suture which was extruding was cut. The trifurcation was reinforced. The area of concern was prepped using Betadine. 1% lidocaine was used to anesthetize the area of concern. Two 4-0 nylon sutures were placed. Informed consent was obtained prior. The patient tolerated the procedure in stable condition. She'll follow up in 2 weeks for suture removal.
== END | disposition home or self-care (01) ==
LOC: WWCWWP 08:34
PROVIDERS: ATTEND Surgery
DX: Z53.9 Procedure and treatment not carried out, unspecified reason (principal)

== ENCOUNTER → 2021-03-14 | Outpatient (CLI) | payer BC ==
--- NOTE | 2021-03-14 08:35 | P.PN ---
Progress Note - Text Progress Note Date: 03/14/21 Silva is a 66-year-old white female status post right breast lumpectomy and axillary node dissection on 11290325. Pathology revealed a positive anterior superior and posterior superior margin. She had reexcision of the area performed on 12130325 and no residual tumor was identified. She has seen radiation oncology, and is planning to start next week. She has no complaints related to the breast at this time. She states the discomfort under her arm has improved. Physical examination: lungs: clear heart: RRR incision: The trifurcation of the incision is alert this time, sutures are ready for removal. No evidence of any infection Right axillary incision clean and dry Impression/plan: Patient doing well small opening at the trifurcation of the breast incision is healed. Sutures to be removed She will follow up with medical oncology Appointment with radiation oncology Follow-up here in 2 months Cc: Dr. Reid
[2021-03-14 08:39] VITALS: BP 117/69; PULSE 60; RESP 18; TEMP 98.7
== END | disposition home or self-care (01) ==
LOC: WWCWWP 08:20
PROVIDERS: ATTEND Surgery
DX: Z53.9 Procedure and treatment not carried out, unspecified reason (principal)

== ENCOUNTER → 2021-05-15 | Outpatient (CLI) | payer BC ==
[2021-05-15 08:56] VITALS: BP 122/80; PULSE 59; RESP 17; TEMP 98.3
--- NOTE | 2021-05-15 09:54 | P.PN ---
Subjective Progress Note Date: 05/15/21 Principal diagnosis: stage IIB right breast cancer surveillance Silva is a 65-year-old white female seen in consultation for Dr. Reid regarding a mass in her right breast and bilateral mammographic/ultrasound abnormalities. The patient states approximately March she noted a mass in her right breast. She states that the skin was discolored as though she had a bruise although she did not recall any trauma. Since that time the area of fullness has decreased in size. She does not complain of any pain in her breast. She had bilateral mammogram performed on 5520. This revealed multiple bilateral punctate calcifications, a 2.1 cm mass at the site of palpable palpable abnormality in the right breast, and distortion upper outer quadrant left breast 6 cm from the nipple. Recommendation was for bilateral breast ultrasound. Bilateral breast ultrasound was performed on the same date and this revealed: Right breast: 2.1 x 2.5 cm solid lesion with calcifications at 9:00, 1.5 x 1.5 cm solid lesion with calcifications at 11:00, and 3.1 x 2.1 cm irregular lymph node at the axilla, biopsy recommended. Left breast: 1.5 cm solid lesion with calcifications at 1:00 biopsy recommended She had not had mammograms performed for many years prior to this. She has not noted any nipple discharge or skin changes. She has not had any recent infection of the breast. She's never had any surgery of the breast. She states she has had a recent 75 pound weight loss which was intentional. 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 She believes the tumor has shrunken. 05-15-21 Karo is a 66-year-old white female who was initially seen in consultation for Dr. Reid regarding a mass in her right breast and bilateral mammographic/ultrasound abnormalities were noted. 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 She underwent neoadjuvant hormone therapy. She subsequently underwent a right partial mastectomy on 11290325. The tumor was noted to be a T2 N1 lesion with close margins and reexcision was performed and the patient underwent radiation therapy. She just completed this approximately 2 weeks ago. She continues on Femara. No complaints related to her breast. Note from Dr. Long reviewed 04-15-21 Caffeine: 2 cups green tea per day Nicotine: Negative, never smoker Chocolate: Occasional Family history: sister: of breast cancer at 51 maternal cousin: brain cancer maternal cousin: leukemia Hormonal history: Menarche: 12 G0 menopause: 39, natural BCP: none hormones: none Surgical history: left ankle and leg trauma Right breast lumpectomy/sentinel node biopsy/reexcision of lumpectomy site performed on 12130326 no residual tumor was identified kidney stone passed on its own Medical History: asthma Eosinophilic esophagitis, diet controlled Multiple bladder infections Social history: Nicotine: Negative Alcohol: Negative Drugs: Negative - Constitutional Constitutional: Denies chills, Denies fever - EENT Comment: beginnings of cataracts, wears glasses Eyes: denies blurred vision, denies pain Ears: deny: decreased hearing, tinnitus Ears, nose, mouth and throat: Denies headache, Denies sore throat - Breasts Breasts: bilateral: as per HPI - Cardiovascular Cardiovascular: Denies chest pain, Denies shortness of breath - Respiratory Comment: asthma/since a child, very premature weighed 3 pounds - Gastrointestinal Gastrointestinal: Denies abdominal pain, Denies diarrhea, Denies nausea, Denies vomiting - Genitourinary (Female) Genitourinary: Denies dysuria, Denies hematuria - Menstruation Menstruation: Reports postmenopausal - Musculoskeletal Musculoskeletal: Denies myalgias - Integumentary Integumentary: Denies pruritus, Denies rash - Neurological Neurological: Denies numbness, Denies weakness - Psychiatric Psychiatric: Denies anxiety, Denies depression - Endocrine Endocrine: Denies fatigue, Denies weight change - Hematologic/Lymphatic Comment: none - Allergic/Immunologic Allergic/Immunologic: Reports seasonal allergies Objective - Vital Signs Vital signs: Vital Signs Temp 98.3 F 05/15/21 08:54 Pulse 59 L 05/15/21 08:54 Resp 17 05/15/21 08:54 BP 122/80 05/15/21 08:54 Pulse Ox 100 05/15/21 08:54 Intake & Output 05/14/21 05/15/21 05/15/21 18:59 06:59 18:59 Weight 58.06 kg - Exam BMI 19.5 - Constitutional General appearance: Present: cooperative - EENT Eyes: Present: EOMI ENT: Present: hearing grossly normal - Neck Neck: Present: normal ROM - Respiratory Respiratory: bilateral: CTA - Cardiovascular Rhythm: regular Heart sounds: normal: S1, S2 - Gastrointestinal General gastrointestinal: Present: soft - Integumentary Integumentary: Present: normal turgor - Musculoskeletal Musculoskeletal: Present: gait normal - Psychiatric Psychiatric: Present: A&O x's 3, appropriate affect, intact judgment & insight - Additional findings Additional findings: Breast Exam: BRA: X-large left, asymmetry secondary to surgery on the right breast Inspection: Grade 3 ptosis left Postoperative changes right Palpation: Breasts: Multiple positional exam postop changes no dominant masses or nodules of concern Right axilla: No adenopathy of concern Left breast: Multi-positional exam fibrocystic changes no dominant masses or nodules of concern Left axilla: No adenopathy of concern Assessment and Plan Assessment: Impression: Patient status post right breast invasive mucinous carcinoma treatment presently on Femara no evidence of disease at this time recently finished radiation therapy; [id number] asthma Eosinophilic esophagitis, diet controlled Multiple bladder infections Plan: Bilateral mammogram in 3 months with physician exam at that time Continue Femara Continue follow-up with medical and radiation oncology CC: Dr. Reid
== END | disposition home or self-care (01) ==
LOC: WWCWWP 08:34
PROVIDERS: ATTEND Surgery
DX: Z53.9 Procedure and treatment not carried out, unspecified reason (principal)

== ENCOUNTER → 2021-08-15 | Outpatient (CLI) | payer BC ==
--- NOTE | 2021-08-15 11:32 | MM ---
Reason for Exam: Follow-up at short interval from prior study. Last mammogram was performed 1 year(s) and 1 month(s) ago. Patient History: Menarche at age 12. Patient has no children. Postmenopausal. Breast cancer, age 65. Previous chest radiation therapy at age 66. 01/21/2021, Lumpectomy on the Right side. 01/21/2021, Malignant Core Biopsy on the right side. 07/05/2020, Malignant Core Biopsy on the right side. 07/05/2020, Malignant Core Biopsy on the right side. 07/05/2020, Benign Core Biopsy on the left side. 07/05/2020, Malignant Core Biopsy on the right side. Sister had breast cancer, age 50. Prior Study Comparison: 06/26/2020 Bilateral Diagnostic Mammogram, [facility]. 06/26/2020 Bilateral Diagnostic Ultrasound, [facility]. 07/05/2020 Bilateral Diagnostic Mammogram, [facility]. 10/25/2020 Right Diagnostic Ultrasound, [facility]. 01/21/2021 Right Diagnostic Mammogram, [facility]. Tissue Density: The breast tissue is heterogeneously dense. This may lower the sensitivity of mammography. Findings: Analyzed By CAD. Post radiation therapy and lumpectomy changes right breast with postoperative distortion. No evidence for recurrent mass. Course of punctate calcifications remain stable bilaterally. No new masses seen. Overall Assessment: Benign, BI-RAD 2 Management: Diagnostic Mammogram of both breasts in 1 year. A clinical breast exam by your physician is recommended on an annual basis and results should be correlated with mammographic findings. This exam should not preclude additional follow-up of suspicious palpable abnormalities. Results were given to the patient verbally at the time of exam. Electronically signed and approved by: Christiano Callahan M.D. Radiologis
[2021-08-15 11:59] VITALS: BP 130/81; PULSE 52; RESP 16; TEMP 98.5
--- NOTE | 2021-08-15 12:29 | P.PN ---
Subjective Progress Note Date: 08/15/21 stage IIB right breast cancer surveillance Silva is a 65-year-old white female seen in consultation for Dr. Reid regarding a mass in her right breast and bilateral mammographic/ultrasound abnormalities. The patient states approximately March she noted a mass in her right breast. She states that the skin was discolored as though she had a bruise although she did not recall any trauma. Since that time the area of fullness has decreased in size. She does not complain of any pain in her breast. She had bilateral mammogram performed on 5520. This revealed multiple bilateral punctate calcifications, a 2.1 cm mass at the site of palpable palpable abnormality in the right breast, and distortion upper outer quadrant left breast 6 cm from the nipple. Recommendation was for bilateral breast ultrasound. Bilateral breast ultrasound was performed on the same date and this revealed: Right breast: 2.1 x 2.5 cm solid lesion with calcifications at 9:00, 1.5 x 1.5 cm solid lesion with calcifications at 11:00, and 3.1 x 2.1 cm irregular lymph node at the axilla, biopsy recommended. Left breast: 1.5 cm solid lesion with calcifications at 1:00 biopsy recommended She had not had mammograms performed for many years prior to this. She has not noted any nipple discharge or skin changes. She has not had any recent infection of the breast. She's never had any surgery of the breast. She states she has had a recent 75 pound weight loss which was intentional. 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 She believes the tumor has shrunken. 05-15-21 Karo is a 66-year-old white female who was initially seen in consultation for Dr. Reid regarding a mass in her right breast and bilateral mammographic/ultrasound abnormalities were noted. The patient underwent a core biopsy which revealed a grade 2 invasive ductal carcinoma ER/AK positive HER- 2/kale negative of the right breast. She underwent neoadjuvant hormone therapy. She subsequently underwent a right partial mastectomy on 11290325. The tumor was noted to be a T2 N1 lesion with close margins and reexcision was performed and the patient underwent radiation therapy. She just completed this approximately 2 weeks ago. She continues on Femara. No complaints related to her breast. Note from Dr. Long reviewed 04-15-21 08-15-21 Note from [id number] Long reviewed; patient presently on Femara bilateral mammogram July 2021 Bilateral mammogram was performed and [id number] this was personally reviewed. This is a benign BIRADS 2. The patient is not complaining of any new breast masses or nodules in either breast. Caffeine: 2 cups green tea per day Nicotine: Negative, never smoker Chocolate: Occasional Family history: sister: of breast cancer at 51 maternal cousin: brain cancer maternal cousin: leukemia Hormonal history: Menarche: 12 G0 menopause: 39, natural BCP: none hormones: none Surgical history: left ankle and leg trauma Right breast lumpectomy/sentinel node biopsy/reexcision of lumpectomy site performed on 12130326 no residual tumor was identified kidney stone passed on its own Medical History: asthma Eosinophilic esophagitis, diet controlled Multiple bladder infections Social history: Nicotine: Negative Alcohol: Negative Drugs: Negative - Constitutional Constitutional: Denies chills, Denies fever - EENT Comment: beginnings of cataracts, wears glasses Eyes: denies blurred vision, denies pain Ears: deny: decreased hearing, tinnitus Ears, nose, mouth and throat: Denies headache, Denies sore throat - Breasts Breasts: bilateral: as per HPI - Cardiovascular Cardiovascular: Denies chest pain, Denies shortness of breath - Respiratory Comment: asthma/since a child, very premature weighed 3 pounds - Gastrointestinal Gastrointestinal: Denies abdominal pain, Denies diarrhea, Denies nausea, Denies vomiting - Genitourinary (Female) Genitourinary: Denies dysuria, Denies hematuria - Menstruation Menstruation: Reports postmenopausal - Musculoskeletal Musculoskeletal: Denies myalgias - Integumentary Integumentary: Denies pruritus, Denies rash - Neurological Neurological: Denies numbness, Denies weakness - Psychiatric Psychiatric: Denies anxiety, Denies depression - Endocrine Endocrine: Denies fatigue, Denies weight change - Hematologic/Lymphatic Comment: none - Allergic/Immunologic Allergic/Immunologic: Reports seasonal allergies Objective - Vital Signs Vital signs: Vital Signs Temp 98.5 F 08/15/21 11:56 Pulse 52 L 08/15/21 11:56 Resp 16 08/15/21 11:56 BP 130/81 08/15/21 11:56 Pulse Ox 100 08/15/21 11:56 FiO2 Intake & Output 08/14/21 08/15/21 08/15/21 18:59 06:59 18:59 Weight 61.235 kg - Constitutional General appearance: Present: cooperative - EENT Eyes: Present: EOMI ENT: Present: hearing grossly normal - Neck Neck: Present: normal ROM - Respiratory Respiratory: bilateral: CTA - Cardiovascular Heart sounds: normal: S1, S2 - Gastrointestinal General gastrointestinal: Present: soft - Integumentary Integumentary: Present: normal turgor - Musculoskeletal Musculoskeletal: Present: gait normal - Psychiatric Psychiatric: Present: A&O x's 3, appropriate affect, intact judgment & insight - Additional findings Additional findings: Breast Exam: BRA: XL sports bra inspection: well healed scar right breast/asymmetry secondary to lumpectomy Palpation: Right breast: Multi-positional exam fibrocystic changes, postoperative and radiation changes no evidence of recurrent cancer Right axilla: No adenopathy of concern Left breast: Multi-positional exam fibrocystic changes, no dominant masses or nodules of concern Left axilla: No adenopathy of concern Assessment and Plan Assessment: Impression: Surveillance right breast invasive ductal carcinoma no evidence of recurrence Plan: Follow up in 4 months for repeat examination Bilateral mammogram in 1 year Continue for more/continue following with medical oncology CC: DR. Reid
== END | disposition home or self-care (01) ==
LOC: RADMAMWWP 10:49
PROVIDERS: ATTEND Surgery
DX: Z85.3 Personal history of malignant neoplasm of breast (principal)
CPT/HCPCS: 77062; 77066

== ENCOUNTER → 2021-12-25 | Outpatient (CLI) | payer BC ==
[2021-12-25 15:34] VITALS: BP 110/70; PULSE 62; RESP 16
--- NOTE | 2021-12-25 16:07 | P.PN ---
Subjective Progress Note Date: 12/25/21 Principal diagnosis: stage IIB right breast cancer surveillance stage IIB right breast cancer surveillance Silva is a 65-year-old white female seen in consultation for Dr. Reid regarding a mass in her right breast and bilateral mammographic/ultrasound abnormalities. The patient states approximately March she noted a mass in her right breast. She states that the skin was discolored as though she had a bruise although she did not recall any trauma. Since that time the area of fullness has decreased in size. She does not complain of any pain in her breast. She had bilateral mammogram performed on 5520. This revealed multiple bilateral punctate calcifications, a 2.1 cm mass at the site of palpable palpable abnormality in the right breast, and distortion upper outer quadrant left breast 6 cm from the nipple. Recommendation was for bilateral breast ultrasound. Bilateral breast ultrasound was performed on the same date and this revealed: Right breast: 2.1 x 2.5 cm solid lesion with calcifications at 9:00, 1.5 x 1.5 cm solid lesion with calcifications at 11:00, and 3.1 x 2.1 cm irregular lymph node at the axilla, biopsy recommended. Left breast: 1.5 cm solid lesion with calcifications at 1:00 biopsy recommended She had not had mammograms performed for many years prior to this. She has not noted any nipple discharge or skin changes. She has not had any recent infection of the breast. She's never had any surgery of the breast. She states she has had a recent 75 pound weight loss which was intentional. 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 She believes the tumor has shrun olena. 05-15-21 Karo is a 66-year-old white female who was initially seen in consultation for Dr. Reid regarding a mass in her right breast and bilateral mammographic/ultrasound abnormalities were noted. The patient underwent a core biopsy which revealed a grade 2 invasive ductal carcinoma ER/OR positive HER- 2/kale negative of the right breast. She underwent neoadjuvant hormone therapy. She subsequently underwent a right partial mastectomy on [id number]. The tumor was noted to be a T2 N1 lesion with close margins and reexcision was performed and the patient underwent radiation therapy. She just completed this approximately 2 weeks ago. She continues on Femara. No complaints related to her breast. Note from Dr. Long reviewed 04-15-21 08-15-21 [place] [id number] Long reviewed; patient presently on Femara bilateral mammogram July 2021 Bilateral mammogram was performed and this was personally reviewed. This is a benign BIRADS 2. The patient is not complaining of any new breast masses or nodules in either breast. 12-25-21 Silva is a 66-year-old white female status post right breast lumpectomy and sentinel node biopsy on 01-21-21. She underwent neoadjuvant hormone therapy prior to the resection. She was treated with radiation therapy. She is presently continuing the Femara without difficulty. She is complaining of an area of concern in the [id number] axilla which has been present for several weeks. Her bilateral mammogram in [id number] which was benign BIRADS 2. Note reviewed from radiation oncology from [id number]. This was by Dr. Silver and was thought she was doing well and could return to see him in one year. Caffeine: 2 cups green tea per day Nicotine: Negative, never smoker Chocolate: Occasional Family history: sister: of breast cancer at 51 maternal cousin: brain cancer maternal cousin: leukemia Hormonal history: Menarche: 12 G0 menopause: 39, natural BCP: none hormones: none Surgical history: left ankle and leg trauma Right breast lumpectomy/sentinel node biopsy/reexcision of lumpectomy site performed on [id number] no residual tumor was identified kidney stone passed on its own Medical History: asthma Eosinophilic esophagitis, diet controlled Multiple bladder infections Social history: Nicotine: Negative Alcohol: Negative Drugs: Negative - Constitutional Constitutional: Denies chills, Denies fever - EENT Comment: beginnings of cataracts, wears glasses Eyes: denies blurred vision, denies pain Ears: deny: decreased hearing, tinnitus Ears, nose, mouth and throat: Denies headache, Denies sore throat - Breasts Breasts: bilateral: as per HPI - Cardiovascular Cardiovascular: Denies chest pain, Denies shortness of breath - Respiratory Comment: asthma/since a child, very premature weighed 3 pounds - Gastrointestinal Gastrointestinal: Denies abdominal pain, Denies diarrhea, Denies nausea, Denies vomiting - Genitourinary (Female) Genitourinary: Denies dysuria, Denies hematuria - Menstruation Menstruation: Reports postmenopausal - Musculoskeletal Musculoskeletal: Denies myalgias - Integumentary Integumentary: Denies pruritus, Denies rash - Neurological Neurological: Denies numbness, Denies weakness - Psychiatric Psychiatric: Denies anxiety, Denies depression - Endocrine Endocrine: Denies fatigue, Denies weight change - Hematologic/Lymphatic Comment: none - Allergic/Immunologic Allergic/Immunologic: Reports seasonal allergies Objective - Vital Signs Vital signs: Vital Signs Temp Pulse 62 12/25/21 15:32 Resp 16 12/25/21 15:32 BP 110/70 12/25/21 15:32 Pulse Ox 98 12/25/21 15:32 FiO2 Intake & Output 12/24/21 12/25/21 12/25/21 18:59 06:59 18:59 Weight 63.503 kg - Exam BMIK: 21.3 - Constitutional General appearance: Present: cooperative - EENT Eyes: Present: EOMI ENT: Present: hearing grossly normal - Neck Neck: Present: normal ROM - Respiratory Respiratory: bilateral: CTA - Cardiovascular Rhythm: regular Heart sounds: normal: S1, S2 - Integumentary Integumentary: Present: normal turgor - Musculoskeletal Musculoskeletal: Present: gait normal - Psychiatric Psychiatric: Present: A&O x's 3, appropriate affect, intact judgment & insight - Additional findings Additional findings: Breast Exam: BRA: sports bra large inspection: Asymmetry of the breast related right breast lumpectomy and sentinel node biopsy, right breast smaller than left breast Palpation: Right breast: Multi-positional exam fibrocystic changes no dominant masses or nodules of concern Right axilla: No discrete lumps or masses however the patient feels some new nodularity therefore an ultrasound will be performed to confirm that there is nothing of concern at this site Left breast: Positional exam fibrocystic changes no dominant masses or nodules of concern Left axilla: No adenopathy of concern Assessment and Plan Assessment: Impression: Patient status post left breast lumpectomy radiation therapy and hormone therapy for a stage IIB invasive ductal carcinoma in 01-21-21. She had reexcision secondary to close margins January 2021. This time the patient states that she notes some questionable nodularity of the right axilla. Patient continuing on Femara Plan: Ultrasound right axilla to rule out any disease of concern nothing is palpable at this time Follow up after ultrasound Continue to follow with medical and radiation oncology CC: Dr. Reid
== END | disposition home or self-care (01) ==
LOC: WWCWWP 15:22
PROVIDERS: ATTEND Surgery
DX: Z53.9 Procedure and treatment not carried out, unspecified reason (principal)

== ENCOUNTER → 2021-12-26 | Outpatient (CLI) | payer BC ==
[2021-12-26 14:27] LABS: Basophils # (A) 0.03 X 10*3/uL (0.00-0.10); Basophils % (A) 0.7 %; Eosinophils # (A) 0.23 X 10*3/uL (0.04-0.35); Eosinophils % (A) 5.7 %; HCT 36.3 % (37.2-46.3); HGB 11.8 g/dL (12.0-15.0); Immature Grans, Automated 0.5 %; Lymphocytes # (A) 0.53 X 10*3/uL (0.90-5.00); Lymphocytes % (A) 13.2 %; MCH 30.5 pg (27.0-32.0); MCHC 32.5 g/dL (32.0-37.0); MCV 93.8 fL (80.0-97.0); Mean Platelet Volume 9.9 fL (9.5-12.2); Monocytes # (A) 0.35 X 10*3/uL (0.20-1.00); Monocytes % (A) 8.7 %; NRBC Per 100 WBC 0 /100 WBCS (0.0-0.0); Neutrophils # (A) 2.86 X 10*3/uL (1.80-7.70); Neutrophils % (A) 71.2 %; Platelet Count 261 X 10*3/uL (140-440); RBC 3.87 X 10*6/uL (4.10-5.20); WBC 4.02 X 10*3/uL (4.50-10.00)
[2021-12-26 16:02] LABS: ALT 15 U/L (8-44); AST 18 U/L (13-35); African American GFR (CKD) 110.1 (60.0-200.0); Albumin/Globulin Ratio 2.53 (1.60-3.17); Alkaline Phosphatase 52 U/L (41-126); BUN/Creat Ratio 20.03 Ratio (12.00-20.00); Bilirubin, Conjugated <0.20 mg/dL (0.20-0.40); Calcium 8.8 mg/dL (8.7-10.3); Chloride 105 mmol/L (96-109); Chol/HDL Ratio 3.96 Ratio; Globulin 1.6 g/dL (1.6-3.3); Glucose 78 mg/dL (70-110); LDL Cholesterol,Calculated 149.4 mg/dL (0.0-131.0); Potassium 4.3 mmol/L (3.5-5.5); Sodium 142 mmol/L (135-145); Total Protein 5.5 g/dL (6.2-8.2); VLDL Calculation 15.78 mg/dL (5.00-40.00)
== END | disposition home or self-care (01) ==
LOC: LABWHC1 08:16
PROVIDERS: ATTEND Internal Medicine Critical Care Medicine
DX: Z00.00 Encounter for general adult medical examination without abnormal findings (principal); C50.519 Malignant neoplasm of lower-outer quadrant of unspecified female breast; J45.50 Severe persistent asthma, uncomplicated; E67.1 Hypercarotenemia
CPT/HCPCS: 36415; 80053; 80061; 82248; 82306; 83036; 84439; 84443; 85025

== ENCOUNTER → 2021-12-26 | Outpatient (CLI) | payer BC ==
--- NOTE | 2021-12-26 08:03 | USB ---
Reason for Exam: Clinical finding. Patient History: Menarche at age 12. Patient has no children. Postmenopausal. Breast cancer, age 65. Previous chest radiation therapy at age 66. 01/21/2021, Lumpectomy on the Right side. 01/21/2021, Malignant Core Biopsy on the right side. 07/05/2020, Malignant Core Biopsy on the right side. 07/05/2020, Malignant Core Biopsy on the right side. 07/05/2020, Benign Core Biopsy on the left side. 07/05/2020, Malignant Core Biopsy on the right side. Sister had breast cancer, age 50. Technique: Method: Targeted. Prior Study Comparison: 07/05/2020 Bilateral Diagnostic Mammogram, [facility]. 01/21/2021 Right Diagnostic Mammogram, [facility]. 08/15/2021 Bilateral MG 3D diag mammo w/cad ALONSO, [facility]. Findings: The axilla of the right breast was scanned. The right breast axilla in the area of palpable abnormality was evaluated with ultrasound imaging. Hypoechoic scar is seen within the tail. Is no suspicious mass or fluid collections. No evidence for lymphadenopathy. Overall Assessment: Benign, BI-RAD 2 Management: Screening Mammogram of both breasts in 1 year. A clinical breast exam by your physician is recommended on an annual basis and results should be correlated with mammographic findings. This exam should not preclude additional follow-up of suspicious palpable abnormalities. Results were given to the patient verbally at the time of exam. Electronically signed and approved by: Quincy Barbour DO
== END | disposition home or self-care (01) ==
LOC: RADUSWWP 07:33
PROVIDERS: ATTEND Surgery
DX: R92.8 Other abnormal and inconclusive findings on diagnostic imaging of breast (principal); Z85.3 Personal history of malignant neoplasm of breast; Z78.0 Asymptomatic menopausal state

== ENCOUNTER → 2022-08-20 | Outpatient (CLI) | payer BC ==
--- NOTE | 2022-08-20 12:18 | MM ---
Reason for Exam: Hx of breast cancer, conservation therapy. Last screening mammogram was performed 12 month(s) ago. Patient History: Menarche at age 12. Patient has no children. Postmenopausal. Breast cancer, right, age 65. Previous chest radiation therapy at age 66. 01/21/2021, Lumpectomy on the Right side. 01/21/2021, Malignant Core Biopsy on the right side. 07/05/2020, Malignant Core Biopsy on the right side. 07/05/2020, Malignant Core Biopsy on the right side. 07/05/2020, Benign Core Biopsy on the left side. 07/05/2020, Malignant Core Biopsy on the right side. 2020, Radiation Therapy on the right side. Sister had breast cancer, age 50. Tissue Density: The breast tissue is heterogeneously dense. This may lower the sensitivity of mammography. Findings: Analyzed By CAD. Post radiation therapy and lumpectomy changes of the right breast with postoperative distortion. No evidence for suspicious masses in either breast. New group of coarse heterogenous calcifications within the upper outer right breast at middle depth. Stable remaining benign-appearing calcifications within both breasts. Overall Assessment: Suspicious, BI-RAD 4 Management: Stereotactic Core Biopsy of the right breast. A clinical breast exam by your physician is recommended on an annual basis and results should be correlated with mammographic findings. This exam should not preclude additional follow-up of suspicious palpable abnormalities. Results were given to the patient verbally at the time of exam. Electronically signed and approved by: Tony Moore D.O.
== END | disposition home or self-care (01) ==
LOC: RADMAMWWP 10:58
PROVIDERS: ATTEND Surgery
DX: Z78.0 Asymptomatic menopausal state (principal); Z85.3 Personal history of malignant neoplasm of breast; Z80.3 Family history of malignant neoplasm of breast
CPT/HCPCS: 77062; 77066

== ENCOUNTER → 2022-08-20 | Outpatient (CLI) | payer BC ==
[2022-08-20 13:04] VITALS: BP 109/73; PULSE 55; RESP 16; TEMP 97.9
--- NOTE | 2022-08-20 13:06 | P.PN ---
Subjective Progress Note Date: 08/20/22 Principal diagnosis: stage IIB right breast cancer surveillance stage IIB right breast cancer surveillance Silva is a 65-year-old white female seen in consultation for Dr. Reid regarding a mass in her right breast and bilateral mammographic/ultrasound abnormalities. The patient states approximately March she noted a mass in her right breast. She states that the skin was discolored as though she had a bruise although she did not recall any trauma. Since that time the area of fullness has decreased in size. She does not complain of any pain in her breast. She had bilateral mammogram performed on 5520. This revealed multiple bilateral punctate calcifications, a 2.1 cm mass at the site of palpable palpable abnormality in the right breast, and distortion upper outer quadrant left breast 6 cm from the nipple. Recommendation was for bilateral breast ultrasound. Bilateral breast ultrasound was performed on the same date and this revealed: Right breast: 2.1 x 2.5 cm solid lesion with calcifications at 9:00, 1.5 x 1.5 cm solid lesion with calcifications at 11:00, and 3.1 x 2.1 cm irregular lymph node at the axilla, biopsy recommended. Left breast: 1.5 cm solid lesion with calcifications at 1:00 biopsy recommended She had not had mammograms performed for many years prior to this. She has not noted any nipple discharge or skin changes. She has not had any recent infection of the breast. She's never had any surgery of the breast. She states she has had a recent 75 pound weight loss which was intentional. 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 She believes the tumor has shrun olena. 05-15-21 Karo is a 66-year-old white female who was initially seen in consultation for Dr. Reid regarding a mass in her right breast and bilateral mammographic/ultrasound abnormalities were noted. The patient underwent a core biopsy which revealed a grade 2 invasive ductal carcinoma ER/[place] positive HER- 2/kale negative of the right breast. She underwent neoadjuvant hormone therapy. She subsequently underwent a right partial mastectomy on [id number]. The tumor was noted to be a T2 N1 lesion with close margins and reexcision was performed and the patient underwent radiation therapy. She just completed this approximately 2 weeks ago. She continues on Femara. No complaints related to her breast. Note from Dr. Long reviewed 04-15-21 08-15-21 Note from [id number] Long reviewed; patient presently on Femara bilateral mammogram July 2021 Bilateral mammogram was performed and this was personally reviewed. This is a benign BIRADS 2. The patient is not complaining of any new breast masses or nodules in either breast. 12-25-21 Silva is a 66-year-old white female status post right breast lumpectomy and sentinel node biopsy on 01-21-21. She underwent neoadjuvant hormone therapy prior to the resection. She was treated with radiation therapy. She is presently continuing the Femara without difficulty. She is complaining of an area of concern in the right axilla which has been present for several weeks. Her bilateral mammogram in 620 [id number] which was benign BIRADS 2. Note reviewed from radiation oncology [place] [id number]. This was by Dr. Silver and was thought she was doing well and could return to see him in one year. 08-20-22 Farhana had a right breast ultrasound performed on following physical examination on 12-25-22 evaluation on examination this was felt to be overall Benign BIRADS 2. She underwent a bilateral mammogram on . This did not reveal any lesions of concern in the left breast. In the right breast there were some new coarse heterogeneous calcifications in the upper outer right breast at mid-depth for which stereotactic core biopsy was recommended. The patient herself does not feel any new lumps masses or nodules of concern. Note from Dr. Long [id number]. At that time to see a 153 was ordered the results revealed a 31.6 level. She is going to discuss this with Dr. Long. It was recommended that she continue with her physical Mary she is tolerating without difficulty. Caffeine: 2 cups green tea per day Nicotine: Negative, never smoker Chocolate: Occasional Family history: sister: of breast cancer at 51 maternal cousin: brain cancer maternal cousin: leukemia Hormonal history: Menarche: 12 G0 menopause: 39, natural BCP: none hormones: none Surgical history: left ankle and leg trauma Right breast lumpectomy/sentinel node biopsy/reexcision of lumpectomy site performed on [id number] no residual tumor was identified kidney stone passed on its own Medical History: asthma Eosinophilic esophagitis, diet controlled Multiple bladder infections Social history: Nicotine: Negative Alcohol: Negative Drugs: Negative - Constitutional Constitutional: Denies chills, Denies fever - EENT Comment: beginnings of cataracts, wears glasses Eyes: denies blurred vision, denies pain Ears: deny: decreased hearing, tinnitus Ears, nose, mouth and throat: Denies headache, Denies sore throat - Breasts Breasts: bilateral: as per HPI - Cardiovascular Cardiovascular: Denies chest pain, Denies shortness of breath - Respiratory Comment: asthma/since a child, very premature weighed 3 pounds - Gastrointestinal Gastrointestinal: Denies abdominal pain, Denies diarrhea, Denies nausea, Denies vomiting - Genitourinary (Female) Genitourinary: Denies dysuria, Denies hematuria - Menstruation Menstruation: Reports postmenopausal - Musculoskeletal Musculoskeletal: Denies myalgias - Integumentary Integumentary: Denies pruritus, Denies rash - Neurological Neurological: Denies numbness, Denies weakness - Psychiatric Psychiatric: Denies anxiety, Denies depression - Endocrine Endocrine: Denies fatigue, Denies weight change - Hematologic/Lymphatic Comment: none - Allergic/Immunologic Allergic/Immunologic: Reports seasonal allergies Objective - Constitutional General appearance: Present: cooperative - EENT Eyes: Present: EOMI ENT: Present: hearing grossly normal - Neck Neck: Present: normal ROM - Respiratory Respiratory: bilateral: CTA - Cardiovascular Rhythm: regular Heart sounds: normal: S1, S2 - Gastrointestinal General gastrointestinal: Present: soft - Integumentary Integumentary: Present: normal turgor - Musculoskeletal Musculoskeletal: Present: gait normal - Psychiatric Psychiatric: Present: A&O x's 3, appropriate affect, intact judgment & insight - Additional findings Additional findings: Breast Exam: BRA: sports bra large inspection: Asymmetry of the breast related right breast lumpectomy and sentinel node biopsy, right breast smaller than left breast Palpation: Right breast: Multi-positional exam fibrocystic changes no dominant masses or nodules of concern Right axilla: No discrete lumps or masses however the patient feels some new nodularity therefore an ultrasound will be performed to confirm that there is nothing of concern at this site Left breast: Positional exam fibrocystic changes no dominant masses or nodules of concern Left axilla: No adenopathy of concern Assessment and Plan Assessment: Impression: Patient status post left breast lumpectomy radiation therapy and hormone therapy for a stage IIB invasive ductal carcinoma in 01-21-21. She had reexcision secondary to close margins January 2021. Patient continuing on Femara Adenopathy of concern in either axilla Right breast mammogram microcalcifications of concern stereo biopsy recommended Plan: Right breast stereotactic core biopsy; this will be scheduled in 6 weeks when the [employer] equipment is available, she was given the option of having this done at another facility but would like to wait and have it done here Continue to follow with medical and radiation oncology CC: Dr. Reid
== END ==
LOC: WWCWWP 10:56
PROVIDERS: ATTEND Surgery
DX: D05.12 Intraductal carcinoma in situ of left breast (principal); R92.0 Mammographic microcalcification found on diagnostic imaging of breast; J45.909 Unspecified asthma, uncomplicated; N63.21 Unspecified lump in the left breast, upper outer quadrant; Z17.0 Estrogen receptor positive status [ER+]; Z79.811 Long term (current) use of aromatase inhibitors; Z90.12 Acquired absence of left breast and nipple; Z80.3 Family history of malignant neoplasm of breast; Z92.3 Personal history of irradiation; Z91.040 Latex allergy status; Z88.2 Allergy status to sulfonamides; Z79.51 Long term (current) use of inhaled steroids

== ENCOUNTER → 2022-10-08 | Outpatient (CLI) | payer BC ==
--- NOTE | 2022-10-09 10:14 | BD ---
EXAMINATION TYPE: Axial Bone Density DATE OF EXAM: 10/08/2022 CLINICAL HISTORY: 67 years old Female. ICD-10 CODE: C50.511 breast ca Height: 65.75 Weight: 148 FRAX RISK QUESTIONS: Family History (Parent hip fracture): yes, mother Glucocorticoids (More than 3mos): no (Ex: prednisone, prednisolone, methylprednisolone, dexamethasone, and hydrocortisone). History of Fracture in Adulthood: yes Secondary Osteoporosis: yes 3. Menopause before 45: yes, 39 RISK FACTORS HISTORY OF: History of Wrist Fracture: yes, both When: as adult Family History of Osteoporosis: yes, mother Active: yes Diet low in dairy products/other sources of calcium: no Postmenopausal woman: yes Lost more than 2 inches in height since high school: yes Frequent falls: no Poor Health: no MEDICATIONS: Osteoporosis Medications: yes Which medication: Fosamax How Lon+years Additional Medications: yes albuterol, Femara, Additional History: yes breast ca 2020 radiation only EXAM MEASUREMENTS: Bone mineral densitometry was performed using the [employer] System. Bone mineral density as measured about the Lumbar spine is: ----- L1-L4(G/cm2): 0.679 T Score Values are as follows: ----- L1: -5.1 ----- L2: -4.9 ----- L3: -4.4 ----- L4: -2.7 ----- L1-L4: -4.2 Z Score Values are as follows: ----- L1: -3.5 ----- L2: -3.4 ----- L3: -2.8 ----- L4: -1.2 ----- L1-L4: -2.6 Bone mineral density has: Increased 12.6% since study of: 08/02/2020 Bone mineral density about the R hip (g/cm2): 0.725 Bone mineral density about the L hip (g/cm2): 0.658 T Score values are as follows: -----R Neck: -2.3 -----L Neck: -2.4 -----R Total: -2.2 -----L Total: -2.8 Z Score values are as follows: -----R Neck: -0.8 -----L Neck: -0.9 -----R Total: -1.0 -----L Total: -1.5 Bone mineral density has: Increased 1.6% since study of: 08/02/2020 FRAX%s: The graph provided illustrates a 34.7% chance for a major osteoporotic fx and a 7.3% chance f or the hips probability for fx in 10 years time. IMPRESSION: Osteoporosis (T Score less than -2.5). There is increased fracture risk and therapy is usually indicated based on age. Re-Screen 1-2 years. NOTE: T-SCORE=SD OF THE YOUNG ADULT MEAN.
== END | disposition home or self-care (01) ==
LOC: RADBDWWP 16:10
PROVIDERS: ATTEND Internal Medicine Hematology & Oncology
DX: C50.511 Malignant neoplasm of lower-outer quadrant of right female breast (principal); M81.0 Age-related osteoporosis without current pathological fracture; M85.89 Other specified disorders of bone density and structure, multiple sites; J45.909 Unspecified asthma, uncomplicated; K20.0 Eosinophilic esophagitis; Z78.0 Asymptomatic menopausal state; Z85.3 Personal history of malignant neoplasm of breast
CPT/HCPCS: 77080

== ENCOUNTER → 2022-10-30 | Day surgery (SDC) | payer BC ==
[2022-10-30 08:03] VITALS: RESP 16
--- NOTE | 2022-10-30 08:50 | P.PCN ---
Date of Procedure: 10/30/22 Preoperative Diagnosis: Stereotactic core biopsy right breast Postoperative Diagnosis: Same Procedure(s) Performed: Right breast stereotactic core biopsy Anesthesia: local Surgeon: Lety Sanchez Pathology: other (Breast tissue) Condition: stable Disposition: same day Indications for Procedure: Microcalcifications of concern right breast, patient status post right breast lumpectomy with new microcalcifications of concern Operative Findings: Radiographic specimen reveals microcalcifications of concern Description of Procedure: The patient is a 67-year-old white female status post right breast lumpectomy and a recent mammogram microcalcifications of concern were identified. Stereotactic core biopsy was recommended. Risks and benefits of the procedure were discussed with the patient and she wished to proceed. The patient was taken to the stereotactic core biopsy room. She was positioned in an upright chair for a 3-D stereo biopsy procedure of the right breast. A lateral to medial approach was utilized. A hem marker film was obtained. The area of concern was identified. The lesion was targeted. The breast was prepped using Betadine. 20 mL of 1% lidocaine was used to anesthetize the area of concern. A 9-gauge Petit needle was driven to the correct coordinates. A prefire film was obtained. The needle was noted to be in the correct location. The needle was fired. 24 core biopsy specimens were obtained. Radiograph of th e specimen revealed microcalcifications of concern had been obtained. A tri- tabitha clip was placed. The clip was noted to be in the correct location. The patient tolerated the procedure in stable condition. The patient will follow-up with Dr. Gerard in 1 week for results.
[2022-10-30 09:09] VITALS: BP 120/56; PULSE 56; TEMP 98.1
--- NOTE | 2022-11-04 08:53 | MM ---
Date of Procedure: 10/30/22 Preoperative Diagnosis: Stereotactic core biopsy right breast Postoperative Diagnosis: Same Procedure(s) Performed: Right breast stereotactic core biopsy Anesthesia: local Surgeon: Lety Sanchez Pathology: other (Breast tissue) Condition: stable Disposition: same day Indications for Procedure: Microcalcifications of concern right breast, patient status post right breast lumpectomy with new microcalcifications of concern Operative Findings: Radiographic specimen reveals microcalcifications of concern Description of Procedure: The patient is a 67-year-old white female status post right breast lumpectomy and a recent mammogram microcalcifications of concern were identified. Stereotactic core biopsy was recommended. Risks and benefits of the procedure were discussed with the patient and she wished to proceed. The patient was taken to the stereotactic core biopsy room. She was positioned in an upright chair for a 3-D stereo biopsy procedure of the right breast. A lateral to medial approach was utilized. A videotape operator film was obtained. The area of concern was identified. The lesion was targeted. The breast was prepped using Betadine. 20 mL of 1% lidocaine was used to anesthetize the area of concern. A 9-gauge Petit needle was driven to the correct coordinates. A prefire film was obtained. The needle was noted to be in the correct location. The needle was fired. 24 core biopsy specimens were obtained. Radiograph of the specimen revealed microcalcifications of concern had been obtained. A tri- tabitha clip was placed. The clip was noted to be in the correct location. The patient tolerated the procedure in stable condition. The patient will follow-up with Dr. Gerard in 1 week for results. YG
== END ==
LOC: RADMAMWWP 07:20
PROVIDERS: ATTEND Surgery
DX: N64.1 Fat necrosis of breast (principal); L90.5 Scar conditions and fibrosis of skin; Z85.3 Personal history of malignant neoplasm of breast
CPT/HCPCS: 88305; 19081; J2001

== ENCOUNTER → 2022-11-06 | Outpatient (CLI) | payer BC ==
--- NOTE | 2022-11-06 10:39 | P.PN ---
Subjective Progress Note Date: 11/06/22 Principal diagnosis: stage IIB right breast cancer surgery 01-11-21, status post stero biopsy right breast 10-30-2022 11-06-22 Karo is a 67-year-old white female who was initially seen in consultation for Dr. Reid regarding a mass in her right breast and bilateral mammographic /ultrasound abnormalities were noted. 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 She underwent neoadjuvant hormone therapy. She subsequently underwent a right partial mastectomy on [id number]. The tumor was noted to be a T2 N1 lesion with close margins and reexcision was performed and the patient underwent radiation therapy. She continues on Femara. Bilateral mammogram 08-20-22 no lesions of concern in the left breast, right breast microcalcification fo concern and stero biopsy recommended Stero biopsy results benign concordant 10-30-22; tolerated the biopsy without difficulty. Patient is presently taking Femara, Fosamax and calcium. She states though she has shrunk about half an inch in the last two years. note reviewed medical oncology 09-09-22; continue Femora, continue Fosamax and Ca blood work: CBC, CMP, CA 15-3, bone Caffeine: 2 cups green tea per day Nicotine: Negative, never smoker Chocolate: Occasional Family history: sister: of breast cancer at 51 maternal cousin: brain cancer maternal cousin: leukemia Hormonal history: Menarche: 12 G0 menopause: 39, natural BCP: none hormones: none Surgical history: left ankle and leg trauma Right breast lumpectomy/sentinel node biopsy/reexcision of lumpectomy site performed on 12130325 no residual tumor was identified kidney stone passed on its own Medical History: asthma Eosinophilic esophagitis, diet controlled Multiple bladder infections Social history: Nicotine: Negative Alcohol: Negative Drugs: Negative - Constitutional Constitutional: Denies chills, Denies fever - EENT Comment: beginnings of cataracts, wears glasses Eyes: denies blurred vision, denies pain Ears: deny: decreased hearing, tinnitus Ears, nose, mouth and throat: Denies headache, Denies sore throat - Breasts Breasts: bilateral: as per HPI - Cardiovascular Cardiovascular: Denies chest pain, Denies shortness of breath - Respiratory Comment: asthma/since a child, very premature weighed 3 pounds - Gastrointestinal Gastrointestinal: Denies abdominal pain, Denies diarrhea, Denies nausea, Denies vomiting - Genitourinary (Female) Genitourinary: Denies dysuria, Denies hematuria - Menstruation Menstruation: Reports postmenopausal - Musculoskeletal Musculoskeletal: Denies myalgias - Integumentary Integumentary: Denies pruritus, Denies rash - Neurological Neurological: Denies numbness, Denies weakness - Psychiatric Psychiatric: Denies anxiety, Denies depression - Endocrine Endocrine: Denies fatigue, Denies weight change - Hematologic/Lymphatic Comment: none - Allergic/Immunologic Allergic/Immunologic: Reports seasonal allergies Objective - Constitutional General appearance: Present: cooperative - EENT Eyes: Present: EOMI ENT: Present: hearing grossly normal - Neck Neck: Present: normal ROM - Integumentary Integumentary Comment(s): Biopsy site right breast clean and dry no evidence of any infection or hematoma Assessment and Plan Assessment: Impression: Patient status post right breast lumpectomy/sentinel node biopsy 1130-21, total bili reexcision of margin, and radiation therapy The patient had neoadjuvant hormone therapy The patient did not have any chemotherapy The patient is presently on Femara Plan: Right breast mammogram in 6 months with physician exam at that time Continue to follow with medical oncology follow with radiation oncology CC: Dr. Reid
[2022-11-06 15:27] VITALS: BP 156/79; PULSE 81; RESP 17; TEMP 97.9
== END ==
LOC: WWCWWP 09:45
PROVIDERS: ATTEND Surgery
DX: C50.911 Malignant neoplasm of unspecified site of right female breast (principal); J45.909 Unspecified asthma, uncomplicated; Z17.0 Estrogen receptor positive status [ER+]; Z85.3 Personal history of malignant neoplasm of breast; Z80.3 Family history of malignant neoplasm of breast; Z92.3 Personal history of irradiation; Z90.11 Acquired absence of right breast and nipple; Z91.040 Latex allergy status; Z88.2 Allergy status to sulfonamides; Z79.51 Long term (current) use of inhaled steroids

== ENCOUNTER → 2023-02-18 | Outpatient (CLI) | payer BC ==
[2023-02-18 15:06] LABS: Basophils # (A) 0.05 X 10*3/uL (0.00-0.10); Basophils % (A) 2.2 %; Eosinophils # (A) 0.17 X 10*3/uL (0.04-0.35); Eosinophils % (A) 7.3 %; HCT 40.8 % (37.2-46.3); HGB 13.7 g/dL (12.0-15.0); Immature Grans, Automated 0 %; Lymphocytes # (A) 0.52 X 10*3/uL (0.90-5.00); Lymphocytes % (A) 22.4 %; MCH 31.9 pg (27.0-32.0); MCHC 33.6 g/dL (32.0-37.0); MCV 95.1 FL (80.0-97.0); Mean Platelet Volume 10.4 FL (9.5-12.2); Monocytes # (A) 0.18 X 10*3/uL (0.20-1.00); Monocytes % (A) 7.8 %; NRBC Per 100 WBC 0 X 10*3/uL (0.00-0.01); Neutrophils % (A) 60.3 %; Platelet Count 181 X 10*3/uL (140-440); RBC 4.29 X 10*6/uL (4.10-5.20); WBC 2.32 X 10*3/uL (4.50-10.00)
[2023-02-18 15:45] LABS: BUN/Creat Ratio 11.83 Ratio (12.00-20.00); Blood Urea Nitrogen 7.1 mg/dL (9.0-27.0); Carbon Dioxide 28.5 mmol/L (21.6-31.8); Chloride 105 mmol/L (96-109); Chol/HDL Ratio 3.66 Ratio; Glucose 81 mg/dL (70-110); LDL Cholesterol,Calculated 144.7 mg/dL (0.0-131.0); Potassium 4.9 mmol/L (3.5-5.5); Sodium 143 mmol/L (135-145); VLDL Calculation 18.82 mg/dL (5.00-40.00)
[2023-02-18 15:46] LABS: ALT 19 U/L (8-44); AST 19 U/L (13-35); Albumin 4.5 g/dL (3.8-4.9); Alkaline Phosphatase 43 U/L (41-126); Globulin 1.5 g/dL (1.6-3.3); Total Bilirubin 0.4 mg/dL (0.3-1.2)
== END | disposition home or self-care (01) ==
LOC: LABWHC1 08:09
PROVIDERS: ATTEND Internal Medicine Critical Care Medicine
DX: Z00.00 Encounter for general adult medical examination without abnormal findings (principal); C50.919 Malignant neoplasm of unspecified site of unspecified female breast; J45.50 Severe persistent asthma, uncomplicated; E67.1 Hypercarotenemia; N60.09 Solitary cyst of unspecified breast
CPT/HCPCS: 36415; 80053; 80061; 82306; 82607; 83036; 84439; 84443; 85025

== ENCOUNTER → 2023-05-18 | Outpatient (CLI) | payer BC ==
--- NOTE | 2023-05-18 08:47 | MM ---
Reason for Exam: Follow-up at short interval from prior study. Last screening mammogram was performed 9 month(s) ago. Patient History: Menarche at age 12. Patient has no children. Postmenopausal. Breast cancer, right, age 65. Previous chest radiation therapy at age 66. 10/30/2022, Benign MG stereo VAD BX RT on the right side. 01/21/2021, Lumpectomy on the Right side. 01/21/2021, Malignant Core Biopsy on the right side. 07/05/2020, Malignant Core Biopsy on the right side. 07/05/2020, Malignant Core Biopsy on the right side. 07/05/2020, Benign Core Biopsy on the left side. 07/05/2020, Malignant Core Biopsy on the right side. 2020, Radiation Therapy on the right side. Sister had breast cancer, age 50. Prior Study Comparison: 01/21/2021 Right Diagnostic Mammogram, [facility]. 08/15/2021 Bilateral MG 3D diag mammo w/cad [facility], [facility]. 08/20/2022 Bilateral MG 3D diag mammo w/cad [facility], [facility]. Tissue Density: Right: There are scattered areas of fibroglandular density. Findings: Analyzed By CAD. Pattern appears stable. Multiple round benign-appearing calcifications are present. 8 core marker is within the upper outer right breast. Prior surgical clips are within the right breast. There is a large round benign-appearing calcification anterior to mid right breast. Focal densities in the posterior right cranial caudal view. On compression this area disperses normally no significant interval changes are evident. No suspicious groups of microcalcifications, spiculated or lobular masses, architectural distortion or other secondary signs of malignancy are mammographically apparent. Overall Assessment: Benign, BI-RAD 2 Management: Screening Mammogram of both breasts in 3 months. A negative mammogram report should not preclude additional follow up of suspicious palpable abnormalities. Patient should continue monthly self breast exam. A clinical breast exam by your physician is recommended on an annual basis and results should be correlated with mammographic findings. Electronically signed and approved by: Arthur Guzman D.O. Radiologis
== END | disposition home or self-care (01) ==
LOC: RADMAMWWP 08:03
PROVIDERS: ATTEND Surgery
DX: R92.321 Mammographic fibroglandular density, right breast (principal); R92.1 Mammographic calcification found on diagnostic imaging of breast; Z85.3 Personal history of malignant neoplasm of breast; Z80.3 Family history of malignant neoplasm of breast; Z78.0 Asymptomatic menopausal state
CPT/HCPCS: 77061; 77065

== ENCOUNTER → 2023-05-28 | Outpatient (CLI) | payer BC ==
--- NOTE | 2023-05-28 13:33 | P.CON ---
Consult Note - . Consult date: 05/28/23 Assessment/Plan:: The patient had an appointment today however did not stay to be seen. She is here for results of a mammogram on 05-18-2023. This was a right breast mammogram and was BI-RADS 2. This was personally reviewed. The patient is going to have a bilateral mammogram in 3 months will be seen at that time. I have called the patient talk to her on the phone. She is not complaining of any new lumps masses or nodules of concern in either breast.
== END ==
LOC: WWCWWP 11:50
PROVIDERS: ATTEND Surgery
DX: R92.321 Mammographic fibroglandular density, right breast (principal); Z91.040 Latex allergy status; Z88.2 Allergy status to sulfonamides

== ENCOUNTER → 2023-09-08 | Outpatient (CLI) | payer MEDICARE ==
--- NOTE | 2023-09-13 09:08 | MM ---
Reason for Exam: Screening (asymptomatic). Last mammogram was performed 1 year(s) and 1 month(s) ago. Patient History: Menarche at age 12. Patient has no children. Postmenopausal. Breast cancer, right, age 65. Previous chest radiation therapy at age 66. 10/30/2022, Benign MG stereo VAD BX RT on the right side. 01/21/2021, Lumpectomy on the Right side. 01/21/2021, Malignant Core Biopsy on the right side. 07/05/2020, Malignant Core Biopsy on the right side. 07/05/2020, Malignant Core Biopsy on the right side. 07/05/2020, Benign Core Biopsy on the left side. 07/05/2020, Malignant Core Biopsy on the right side. 2020, Radiation Therapy on the right side. Sister had breast cancer, age 50. Prior Study Comparison: 08/15/2021 Bilateral MG 3D diag mammo w/cad [facility], [facility]. 08/20/2022 Bilateral MG 3D diag mammo w/cad [facility], [facility]. 05/18/2023 Right MG 3D diag mammo w/cad [facility], [facility]. Tissue Density: The breasts are heterogeneously dense, which may obscure small masses. Findings: Analyzed By CAD. There is no suspicious group of microcalcifications or new suspicious mass in either breast. Stable postoperative changes right breast. Overall Assessment: Benign, BI-RAD 2 Management: Screening Mammogram of both breasts in 1 year. . Patient should continue monthly self-breast exams. A clinical breast exam by your physician is recommended on an annual basis. This exam should not preclude additional follow-up of suspicious palpable abnormalities. Note on Anabelle scores and lifetime risk: 1. A Anabelle score greater than 3% is considered moderate risk. If this is the case, consider specialist referral to assess eligibility for a risk reducing agent. 2. If overall lifetime risk for the development of breast cancer is 20% or higher, the patient may qualify for future screening with alternating mammogram and breast MRI. Electronically signed and approved by: Christiano Callahan M.D. Radiologis
== END | disposition home or self-care (01) ==
LOC: RADMAMWWP 08:46
PROVIDERS: ATTEND Surgery
DX: Z12.31 Encounter for screening mammogram for malignant neoplasm of breast (principal); Z78.0 Asymptomatic menopausal state; Z85.3 Personal history of malignant neoplasm of breast; R92.333 Mammographic heterogeneous density, bilateral breasts
CPT/HCPCS: 77063; 77067

== ENCOUNTER → 2023-09-17 | Outpatient (CLI) | payer MEDICARE ==
[2023-09-17 13:58] VITALS: BP 133/83; PULSE 75; RESP 17; TEMP 98.8
--- NOTE | 2023-09-17 14:22 | P.PN ---
Subjective Progress Note Date: 09/17/23 Principal diagnosis: stage IIA mucinous carcinoma right breast [id number]- stage IIB right breast cancer surgery 01-11-21, status post stero biopsy right breast 10-30-2022 11-06-22 Karo is a 67-year-old white female who was initially seen in consultation for Dr. Reid regarding a mass in her right breast and bilateral mammographic/ultrasound abnormalities were noted. The patient underwent a core biopsy which revealed a grade 2 invasive ductal carcinoma ER/OK positive HER- 2/kale negative of the right breast. She underwent neoadjuvant hormone therapy. She subsequently underwent a right partial mastectomy on [id number]. The tumor was noted to be a T2 N1 lesion with close margins and reexcision was performed and the patient underwent radiation therapy. She continues on Femara. Bilateral mammogram 08-20-22 no lesions of concern in the left breast, right breast microcalcification fo concern and stero biopsy recommended Stero biopsy results benign concordant 10-30-22; tolerated the biopsy without difficulty. Patient is presently taking Femara, Fosamax and calcium. She states though she has shrunk about half an inch in the last two years. note reviewed medical oncology 09-09-22; continue Femora, continue Fosamax and Ca blood work: CBC, CMP, CA 15-3, bone 09-17-23 bilateral mammogram 09-08-23 BIRAD 2; personally interpreted stereo biopsy 10-30-22 fat necrosis/fibrous scar benign concordant neoadjuvant hormone therapy 01-21-21 right partial mastectomy/ re-excision of margins chemotherapy: none oncotype: 12 radiation: finished on 04-25-21 taking an AI Femora/ she is taking medication for bone density ( 1 a week) She is not complaining of any new lumps masses or nodules of concern in either breast Caffeine: 2 cups green tea per day Nicotine: Negative, never smoker Chocolate: Occasional Family history: sister: of breast cancer at 51 maternal cousin: brain cancer maternal cousin: leukemia Hormonal history: Menarche: 12 G0 menopause: 39, natural BCP: none hormones: none Surgical history: left ankle and leg trauma Right breast lumpectomy/sentinel node biopsy/reexcision of lumpectomy site performed on 12130325 no residual tumor was identified kidney stone passed on its own Medical History: asthma Eosinophilic esophagitis, diet controlled Multiple bladder infections Social history: Nicotine: Negative Alcohol: Negative Drugs: Negative - Constitutional Constitutional: Denies chills, Denies fever - EENT Comment: beginnings of cataracts, wears glasses Eyes: denies blurred vision, denies pain Ears: deny: decreased hearing, tinnitus Ears, nose, mouth and throat: Denies headache, Denies sore throat - Breasts Breasts: bilateral: as per HPI - Cardiovascular Cardiovascular: Denies chest pain, Denies shortness of breath - Respiratory Comment: asthma/since a child, very premature weighed 3 pounds - Gastrointestinal Gastrointestinal: Denies abdominal pain, Denies diarrhea, Denies nausea, Denies vomiting - Genitourinary (Female) Genitourinary: Denies dysuria, Denies hematuria - Menstruation Menstruation: Reports postmenopausal - Musculoskeletal Musculoskeletal: Denies myalgias - Integumentary Integumentary: Denies pruritus, Denies rash - Neurological Neurological: Denies numbness, Denies weakness - Psychiatric Psychiatric: Denies anxiety, Denies depression - Endocrine Endocrine: Denies fatigue, Denies weight change - Hematologic/Lymphatic Comment: none - Allergic/Immunologic Allergic/Immunologic: Reports seasonal allergies Objective - Vital Signs Vital signs: Vital Signs Temp 98.8 F 09/17/23 13:55 Pulse 75 09/17/23 13:55 Resp 17 09/17/23 13:55 BP 133/83 09/17/23 13:55 Pulse Ox 99 09/17/23 13:55 FiO2 Intake & Output 09/16/23 09/17/23 09/17/23 18:59 06:59 18:59 Weight 60.781 kg - Constitutional General appearance: Present: cooperative - EENT Eyes: Present: EOMI ENT: Present: hearing grossly normal - Neck Neck: Present: normal ROM - Respiratory Respiratory: bilateral: CTA - Cardiovascular Rhythm: regular Heart sounds: normal: S1, S2 - Integumentary Integumentary: Present: normal turgor - Musculoskeletal Musculoskeletal: Present: gait normal - Psychiatric Psychiatric: Present: A&O x's 3, appropriate affect, intact judgment & insight - Additional findings Additional findings: Breast Exam: Inspection: Right breast smaller than left breast secondary to prior surgery Palpation: Right breast: Multi positional exam postsurgical changes, the patient has a nodule present at the upper aspect of the incision which is most likely fat necrosis but it is palpable and distinct from the surrounding tissue Right axilla: No adenopathy of concern Left breast: Grade 3 ptosis, multi positional exam no dominant masses or nodules of concern Left axilla: No adenopathy of concern Assessment and Plan Assessment: Impression: Nodularity right breast near prior lumpectomy site Fibrocystic breast changes Bilateral mammogram 09-08-2023 BI-RADS 2 Plan: Evaluation of nodularity right breast is felt to be necessary, we have discussed an attempt at an FNA of this area versus surgical resection secondary to the fact that it is felt that it needs to be resected no matter what the surgical resection was recommended. The patient understands and wishes to have this performed. This is very superficial and it is felt that this can be done with local anesthetic. The patient would prefer to have it done with local anesthetic and no sedation. We are going to contact the operative suite to get this scheduled. Risk of the procedure: Bleeding, infection, reaction to the anesthetic, if this were to be a recurrent malignancy it is possible that further surgery would be necessary. The patient understands and wishes to proceed. Surgical resection nodule right breast/this is to be done with local anesthetic without sedation CC: Dr. Reid
== END ==
LOC: WWCWWP 13:42
PROVIDERS: ATTEND Surgery
DX: R92.0 Mammographic microcalcification found on diagnostic imaging of breast (principal); C50.911 Malignant neoplasm of unspecified site of right female breast; N60.11 Diffuse cystic mastopathy of right breast; N60.12 Diffuse cystic mastopathy of left breast; N63.10 Unspecified lump in the right breast, unspecified quadrant; Z92.3 Personal history of irradiation; Z17.0 Estrogen receptor positive status [ER+]; Z80.3 Family history of malignant neoplasm of breast; Z91.040 Latex allergy status; Z88.2 Allergy status to sulfonamides

== ENCOUNTER 2023-09-21 07:13 | Day surgery (SDC) | payer MEDICARE ==
[2023-09-20 08:27] VITALS: BMI 20.5
[~2023-09-21 07:13] MED LIST changes: +ACETAMINOPHEN TAB 500 MG TAB PO PRN; -HEPARIN SODIUM,PORCINE/PF 5,000 UNIT/0.5 ML SYRINGE SQ PRN; +MIDAZOLAM 2 MG/2 ML VIAL IV PRN
[2023-09-21 08:19] VITALS: RESP 16; TEMP 97.9
[2023-09-21] MEDS: HEPARIN SODIUM,PORCINE 5,000 UNIT/ML 1 ML VIAL SQ PRN (08:23)
[2023-09-21] MEDS: LIDOCAINE 0.5% (PF) 5 MG/ML (50 ML SDV) SQ ONE ×2 (08:54)
[2023-09-21] MEDS: LIDOCAINE 1% INJ 10MG/ML (20 ML MDV) SQ ONE ×2 (08:54)
--- NOTE | 2023-09-21 09:23 | P.BCAON ---
Date of Procedure: 09/21/23 Preoperative Diagnosis: Nodule of concern right breast Postoperative Diagnosis: Same Procedure(s) Performed: Lumpectomy nodule right breast Anesthesia: local Surgeon: Lety Sanchez Estimated Blood Loss (ml): 3 Pathology: other (Right breast tissue) Condition: stable Disposition: same day Indications for Procedure: Palpable nodule right breast at area of prior lumpectomy for a mucinous carcinoma Operative Findings: Nodular breast tissue at site of palpable abnormality Description of Procedure: The patient was brought to the operating room. The area of concern was prepped using Betadine. 15 cc of 0.75% lidocaine was used to anesthetize the area of concern. An incision was made and carried down to the palpable abnormality. This was grasped using an Allis clamp. Excision was performed using the electrocautery device. The lesion of concern appeared to be fibrotic tissue possibly consistent with fat necrosis. Following removal of this the wound was well irrigated. After we are sure that hemostasis was attained the deep tissues were closed using 3-0 Vicryl suture. The skin was closed using 4-0 Monocryl. Surgicel in powder form was placed. A sterile dressing was applied. All instrument and sponge counts were correct at the end of the case. The patient tolerated the procedure in stable condition.
[2023-09-21 09:45] VITALS: BP 115/73; PULSE 61
== END 2023-09-21 09:56 | disposition home or self-care (01) ==
LOC: OR 07:13
PROVIDERS: ATTEND Surgery
DX: C50.911 Malignant neoplasm of unspecified site of right female breast
CPT/HCPCS: 19301; J1644; J2001 ×2; 88307

== ENCOUNTER → 2024-06-15 | Outpatient (CLI) | payer MEDICARE ==
[2024-06-15 15:04] LABS: Basophils # (A) 0.03 X 10*3/uL (0.00-0.10); Basophils % (A) 0.9 %; Eosinophils # (A) 0.12 X 10*3/uL (0.04-0.35); Eosinophils % (A) 3.6 %; HCT 40.4 % (37.2-46.3); HGB 13.1 g/dL (12.0-15.0); Immature Grans, Automated 0 %; Lymphocytes # (A) 0.66 X 10*3/uL (0.90-5.00); Lymphocytes % (A) 19.8 %; MCH 31.4 pg (27.0-32.0); MCHC 32.4 g/dL (32.0-37.0); MCV 96.9 FL (80.0-97.0); Mean Platelet Volume 10.3 FL (9.5-12.2); Monocytes # (A) 0.23 X 10*3/uL (0.20-1.00); Monocytes % (A) 6.9 %; NRBC Per 100 WBC 0 X 10*3/uL (0.00-0.01); Neutrophils # (A) 2.29 X 10*3/uL (1.80-7.70); Neutrophils % (A) 68.8 %; Platelet Count 227 X 10*3/uL (140-440); RBC 4.17 X 10*6/uL (4.10-5.20); RDW 13.4 % (11.5-14.5); WBC 3.33 X 10*3/uL (4.50-10.00)
[2024-06-15 15:51] LABS: ALT 30 U/L (8-44); AST 33 U/L (13-35); Albumin 4.1 g/dL (3.8-4.9); Albumin/Globulin Ratio 2.05 Ratio (1.60-3.17); Alkaline Phosphatase 59 U/L (41-126); Blood Urea Nitrogen 15.6 mg/dL (9.0-27.0); Chloride 108 mmol/L (96-109); Glucose 80 mg/dL (70-110); Potassium 4.4 mmol/L (3.5-5.5); Sodium 143 mmol/L (135-145); T4, Free (Free Thyroxine) 1.02 ng/dL (0.80-1.80); Total Bilirubin 0.2 mg/dL (0.3-1.2); Total Protein 6.1 g/dL (6.2-8.2); VLDL Calculation 15.66 mg/dL (5.00-40.00)
== END | disposition home or self-care (01) ==
LOC: LABWHC1 08:43
PROVIDERS: ATTEND Internal Medicine Critical Care Medicine
DX: E78.5 Hyperlipidemia, unspecified (principal); M81.0 Age-related osteoporosis without current pathological fracture
CPT/HCPCS: 36415; 80053; 80061; 82306; 83036; 84439; 84443; 85025

== ENCOUNTER → 2024-07-06 | Outpatient (CLI) | payer MEDICARE ==
[2024-07-06 09:11] VITALS: BP 134/81; PULSE 77; RESP 16; TEMP 98.3
--- NOTE | 2024-07-06 09:21 | P.PN ---
Subjective Progress Note Date: 07/06/24 Principal diagnosis: stage IIA mucinous carcinoma right breast [id number]- 07-06-24 Silva is a 69-year-old white female who was initially seen for Dr. Reid regarding a mass in her right breast and had bilateral mammogram/ultrasound abnormalities noted. She underwent a core biopsy which revealed a grade 2 invasive ductal carcinoma ER/IN positive HER2 negative. She underwent neoadjuvant hormone therapy. She subsequently underwent a right partial mastectomy on 01-21-2021. The tumor was noted to be a T2 N1 lesion with close margins and reexcision was performed and the patient underwent radiation therapy Bilateral mammogram 09-08-2023 BI-RADS 2 Oncotype 12 no chemotherapy on Femora Radiation: Finished on 04-25-2021 The patient underwent excision in the operating room of a nodule in the right breast on 09 20 24 which was consistent with fat necrosis She is not complaining of any new lumps masses or nodules of concern in either breast bone scan in September bilateral mammogram in August 2024 Caffeine: 2 cups green tea per day Nicotine: Negative, never smoker Chocolate: Occasional Family history: sister: of breast cancer at 51 maternal cousin: brain cancer maternal cousin: leukemia Hormonal history: Menarche: 12 G0 menopause: 39, natural BCP: none hormones: none Surgical history: left ankle and leg trauma Right breast lumpectomy/sentinel node biopsy/reexcision of lumpectomy site performed on 12130325 no residual tumor was identified kidney stone passed on its own Medical History: asthma Eosinophilic esophagitis, diet controlled Multiple bladder infections Social history: Nicotine: Negative Alcohol: Negative Drugs: Negative - Constitutional Constitutional: Denies chills, Denies fever - EENT Comment: beginnings of cataracts, wears glasses Eyes: denies blurred vision, denies pain Ears: deny: decreased hearing, tinnitus Ears, nose, mouth and throat: Denies headache, Denies sore throat - Breasts Breasts: bilateral: as per HPI - Cardiovascular Cardiovascular: Denies chest pain, Denies shortness of breath - Respiratory Comment: asthma/since a child, very premature weighed 3 pounds - Gastrointestinal Gastrointestinal: Denies abdominal pain, Denies diarrhea, Denies nausea, Denies vomiting - Genitourinary (Female) Genitourinary: Denies dysuria, Denies hematuria - Menstruation Menstruation: Reports postmenopausal - Musculoskeletal Musculoskeletal: Denies myalgias - Integumentary Integumentary: Denies pruritus, Denies rash - Neurological Neurological: Denies numbness, Denies weakness - Psychiatric Psychiatric: Denies anxiety, Denies depression - Endocrine Endocrine: Denies fatigue, Denies weight change - Hematologic/Lymphatic Comment: none - Allergic/Immunologic Allergic/Immunologic: Reports seasonal allergies Objective - Constitutional General appearance: Present: cooperative - EENT Eyes: Present: EOMI ENT: Present: hearing grossly normal - Neck Neck: Present: normal ROM - Respiratory Respiratory: bilateral: CTA - Cardiovascular Rhythm: regular Heart sounds: normal: S1, S2 - Integumentary Integumentary: Present: normal turgor - Musculoskeletal Musculoskeletal: Present: gait normal - Psychiatric Psychiatric: Present: A&O x's 3, appropriate affect, intact judgment & insight - Additional findings Additional findings: Breast Exam: Inspection: Right breast smaller than left breast secondary to prior surgery Palpation: Right breast: Multi positional exam postsurgical changes no masses of concern Right axilla: No adenopathy of concern Left breast: Grade 3 ptosis, multi positional exam no dominant masses or nodules of concern Left axilla: No adenopathy of concern Assessment and Plan Assessment: Impression: Nodularity right breast near prior lumpectomy site/status post excision on 09-21-2023 benign fat necrosis Fibrocystic breast changes Bilateral mammogram 09-08-2023 BI-RADS 2 Plan: Patient due for bilateral mammogram August 2024 with appointment at that time Continue Femara Continue follow-up with medical and radiation oncology Follow-up sooner any questions or concerns CC: Dr. Reid
== END ==
LOC: WWCWWP 09:00
PROVIDERS: ATTEND Surgery
DX: Z12.31 Encounter for screening mammogram for malignant neoplasm of breast (principal); N60.11 Diffuse cystic mastopathy of right breast; Z88.2 Allergy status to sulfonamides; Z91.040 Latex allergy status

== ENCOUNTER → 2024-09-08 | Outpatient (CLI) | payer MEDICARE ==
--- NOTE | 2024-09-08 08:38 | MM ---
Reason for Exam: Additional evaluation requested from prior study. Last screening mammogram was performed 12 month(s) ago. Patient History: Menarche at age 12. Patient has no children. Postmenopausal. Breast cancer, right, age 65. Previous chest radiation therapy at age 66. 10/30/2022, Benign MG stereo VAD BX RT on the right side. 01/21/2021, Lumpectomy on the Right side. 01/21/2021, Malignant Core Biopsy on the right side. 07/05/2020, Malignant Core Biopsy on the right side. 07/05/2020, Malignant Core Biopsy on the right side. 07/05/2020, Benign Core Biopsy on the left side. 07/05/2020, Malignant Core Biopsy on the right side. 2020, Radiation Therapy on the right side. Sister had breast cancer, age 50. Prior Study Comparison: 08/20/2022 Bilateral MG 3D diag mammo w/cad [facility], [facility]. 05/18/2023 Right MG 3D diag mammo w/cad [facility], [facility]. 09/08/2023 Bilateral MG 3D screening mammo w/cad, [facility]. Tissue Density: There are scattered areas of fibroglandular density. Findings: Analyzed By CAD. Postsurgical changes suggesting prior lumpectomy right breast similar in appearance. Benign appearing calcifications bilaterally. Surgical clip left breast. Overall Assessment: Benign, BI-RAD 2 Management: Screening Mammogram of both breasts in 1 year. . Results were given to the patient verbally at the time of exam. Patient should continue monthly self-breast exams. A clinical breast exam by your physician is recommended on an annual basis. This exam should not preclude additional follow-up of suspicious palpable abnormalities. Note on Anabelle scores and lifetime risk: 1. A Anabelle score greater than 3% is considered moderate risk. If this is the case, consider specialist referral to assess eligibility for a risk reducing agent. 2. If overall lifetime risk for the development of breast cancer is 20% or higher, the patient may qualify for future screening with alternating mammogram and breast MRI. [facility], , 09/08/2024 8:35 AM. Electronically signed and approved by: Atul Smith M.D. Radiologis
== END | disposition home or self-care (01) ==
LOC: RADMAMWWP 08:17
PROVIDERS: ATTEND Surgery
DX: C50.911 Malignant neoplasm of unspecified site of right female breast (principal); R92.323 Mammographic fibroglandular density, bilateral breasts; R92.1 Mammographic calcification found on diagnostic imaging of breast; Z78.0 Asymptomatic menopausal state; Z80.3 Family history of malignant neoplasm of breast; Z85.3 Personal history of malignant neoplasm of breast
CPT/HCPCS: 77066; G0279; 77062

== ENCOUNTER → 2024-09-14 | Outpatient (CLI) | payer MEDICARE ==
[2024-09-14 11:49] VITALS: BP 138/83; PULSE 60; RESP 17; TEMP 97.9
--- NOTE | 2024-09-14 11:54 | P.PN ---
Subjective Progress Note Date: 09/14/24 Principal diagnosis: stage IIA mucinous carcinoma right breast [id number]+Pr+Her2-, 2020 Principal diagnosis: stage IIA mucinous carcinoma right breast [id number]+Pr+Her2-, 2020 Silva is a 69-year-old white female who was initially seen for Dr. Reid regarding a mass in her right breast and had bilateral mammogram/ultrasound abnormalities noted. She underwent a core biopsy which revealed a grade 2 invasive ductal carcinoma ER/FL positive HER2 negative. She underwent neoadjuvant hormone therapy. She subsequently underwent a right partial mastectomy on 01-21-2021. The tumor was noted to be a T2 N1 lesion with close margins and reexcision was performed and the patient underwent radiation therapy Bilateral mammogram 09-08-24 BI-RADS 2 Oncotype 12 no chemotherapy on Femora Radiation: Finished on 04-25-2021 The patient underwent excision in the operating room of a nodule in the right breast on 09 20 24 which was consistent with fat necrosis She is not complaining of any new lumps masses or nodules of concern in either breast bilateral mammogram in August 2025 Caffeine: 2 cups green tea per day Nicotine: Negative, never smoker Chocolate: Occasional Family history: sister: of breast cancer at 51 maternal cousin: brain cancer maternal cousin: leukemia Hormonal history: Menarche: 12 G0 menopause: 39, natural BCP: none hormones: none Surgical history: left ankle and leg trauma Right breast lumpectomy/sentinel node biopsy/reexcision of lumpectomy site performed on [id number] no residual tumor was identified kidney stone passed on its own Medical History: asthma Eosinophilic esophagitis, diet controlled Multiple bladder infections Social history: Nicotine: Negative Alcohol: Negative Drugs: Negative - Constitutional Constitutional: Denies chills, Denies fever - EENT Comment: beginnings of cataracts, wears glasses Eyes: denies blurred vision, denies pain Ears: deny: decreased hearing, tinnitus Ears, nose, mouth and throat: Denies headache, Denies sore throat - Breasts Breasts: bilateral: as per HPI - Cardiovascular Cardiovascular: Denies chest pain, Denies shortness of breath - Respiratory Comment: asthma/since a child, very premature weighed 3 pounds - Gastrointestinal Gastrointestinal: Denies abdominal pain, Denies diarrhea, Denies nausea, Denies vomiting - Genitourinary (Female) Genitourinary: Denies dysuria, Denies hematuria - Menstruation Menstruation: Reports postmenopausal - Musculoskeletal Musculoskeletal: Denies myalgias - Integumentary Integumentary: Denies pruritus, Denies rash - Neurological Neurological: Denies numbness, Denies weakness - Psychiatric Psychiatric: Denies anxiety, Denies depression - Endocrine Endocrine: Denies fatigue, Denies weight change - Hematologic/Lymphatic Comment: none - Allergic/Immunologic Allergic/Immunologic: Reports seasonal allergies Objective - Constitutional General appearance: Present: cooperative - EENT Eyes: Present: EOMI ENT: Present: hearing grossly normal - Neck Neck: Present: normal ROM - Respiratory Respiratory: bilateral: CTA - Cardiovascular Rhythm: regular Heart sounds: normal: S1, S2 - Integumentary Integumentary: Present: normal turgor - Musculoskeletal Musculoskeletal: Present: gait normal - Psychiatric Psychiatric: Present: A&O x's 3, appropriate affect, intact judgment & insight - Additional findings Additional findings: Breast Exam: Inspection: Right breast smaller than left breast secondary to prior surgery Palpation: Right breast: Multi positional exam postsurgical changes no masses of concern Right axilla: No adenopathy of concern Left breast: Grade 3 ptosis, multi positional exam no dominant masses or nodules of concern Left axilla: No adenopathy of concern Rash under her breast, suspect fungal infection Assessment and Plan Assessment: Impression: Nodularity right breast near prior lumpectomy site/status post excision on 09-21-2023 benign fat necrosis Fibrocystic breast changes Bilateral mammogram 09-08-24 BI-RADS 2 Rash under breast, suspect fungal infection Plan: Patient due for bilateral mammogram August 2025 with appointment at that time Continue Femara Continue follow-up with medical and radiation oncology Follow-up sooner any questions or concerns follow up in 6 months for surveillance Nystatin as needed for fungal infection CC: Dr. Reid
== END ==
LOC: WWCWWP 10:46
PROVIDERS: ATTEND Surgery
DX: N60.11 Diffuse cystic mastopathy of right breast (principal); M79.89 Other specified soft tissue disorders; R21 Rash and other nonspecific skin eruption; Z90.11 Acquired absence of right breast and nipple; Z98.890 Other specified postprocedural states; Z88.2 Allergy status to sulfonamides; Z91.040 Latex allergy status